=== PATIENT | male | born 1945 | race Two or more races ===

== ENCOUNTER 2021-05-08 09:01 | Inpatient (IN) | payer OTHER ==
[~2021-05-08] VITALS: Ht 167.6 cm; Wt 77.5 kg
[2021-05-08 10:13] LABS: Basophils # (auto) 0 10 ^3/uL (0-0.2); Eosinophils # (auto) 0 10 ^3/uL (0-0.8); Lymphocytes # (auto) 0.3 10 ^3/uL (0.4-5.4); Neutrophils # (auto) 2.6 10 ^3/uL (1.6-8.6); Red Cell Distribution Width 13.1 % (11.8-14.3); White Blood Cell 3.3 10^3/uL (4.4-10.8)
[2021-05-08 10:15] LABS: Basophils % (auto) 0.2 % (0.0-2.0); Hematocrit 51.2 % (41.0-53.0); Lymphocytes % (auto) 10.3 % (10.0-50.0); Mean Corpuscular Hgb Conc. 35.1 g/dL (32.0-36.0); Mean Corpuscular Volume 105.3 fL (80.0-100.0); Monocytes # (auto) 0.4 10 ^3/uL (0-1.3); Neutrophils % (auto) 78.5 % (37.0-80.0); Nucleated Red Blood Cells % 0.4 %; Red Blood Cells 4.86 10^6/uL (4.5-5.90)
[2021-05-08 10:23] LABS: Albumin 2.7 g/dL (3.4-5.0); Anion Gap 9 (5-15); Blood Urea Nitrogen 28 mg/dL (7-18); Calcium 8.7 mg/dL (8.5-10.1); Carbon Dioxide 25 mmol/L (21-32); Chloride 103 mmol/L (98-107); Glucose 167 mg/dL (74-106); Magnesium 2.7 mg/dL (1.6-2.6); Potassium 4.7 mmol/L (3.5-5.1); Sodium 137 mmol/L (136-145)
[2021-05-08 10:25] LABS: BUN/Creatinine Ratio 23.9; GFR African American 78 mL/min; GFR Non-African American 65 mL/min
[2021-05-08 11:25] LABS: Alanine Aminotransferase 77 U/L (16-61); Alkaline Phosphatase 71 U/L (45-117); Aspartate Aminotransferase 114 U/L (15-37); Bilirubin, Total 0.6 mg/dL (0.2-1.0); Total Protein 7.2 g/dL (6.4-8.2)
[2021-05-08] MEDS ORDERED: CHOLECALCIFEROL (VITD3) 2,000 UNIT CAP/TAB PO ONE (12:00)
[2021-05-08] MEDS ORDERED: ASCORBIC ACID 500 MG TAB PO ONE (12:00)
[2021-05-08] MEDS ORDERED: cefTRIAXone 1GM/50ML D5W 50 ML IV ONE (12:00)
[2021-05-08] MEDS ORDERED: AZITHROMYCIN 500MG/ 250ML 250 ML IV ONE (12:00)
[2021-05-08] MEDS ORDERED: ZINC SULFATE 220mg CAP or TAB PO ONE (12:00)
[2021-05-08] MEDS ORDERED: DexAMETHasone SOD PHOS 10MG/1ML VIAL INJ IV ONE (12:00)
[2021-05-08] MEDS ORDERED: MORPHINE SULFATE INJECTION 2 MG/ML SYRG IV PRN (12:45)
[2021-05-08] MEDS ORDERED: NITROGLYCERIN 0.4 MG SL TAB SL PRN (12:45)
[2021-05-08] MEDS ORDERED: REMDESIVIR PER PHARMACY 0 ML IV SCH (12:45)
[2021-05-08] MEDS ORDERED: ACETAMINOPHEN 500 MG TAB PO PRN (12:45)
[2021-05-08 13:44] VITALS: BP 123/69
[2021-05-08 14:03] LABS: Thyroid Stimulating Hormone 1.4 uIU/mL (0.358-3.74)
[2021-05-08 14:10] VITALS: BP 130/76
[2021-05-08 14:16] VITALS: BP 130/76
[2021-05-08] MEDS ORDERED: REMDESIVIR 200 MG in NS 210ml LOADING DOSE ADULT IV ONE (15:00)
[2021-05-08 17:20] VITALS: BP 117/75
[2021-05-08] MEDS: BUDESONIDE (INHALATION) 180 MCG IH IN SCH (21:02)
[2021-05-08] MEDS: ALBUTEROL SULF HFA 90MCG INH 200DOSE IN PRN (21:02)
[2021-05-08] MEDS: ENOXAPARIN SOD 40 MG/0.4 ML SYRINGE SC SCH (21:35)
[2021-05-08 22:00] VITALS: BP 118/72
[2021-05-09 02:41] LABS: Urine Bacteria FEW /hpf (None Seen); Urine Blood Negative /uL (Negative); Urine Hyaline Cast MOD /lpf (0 - 2); Urine Mucus FEW (None Seen); Urine Specific Gravity 1.036 (1.001-1.035); Urine WBC 8 /hpf (0 - 3)
[2021-05-09 05:00] VITALS: BP 112/70
[2021-05-09 06:09] LABS: Potassium 4.3 mmol/L (3.5-5.1)
[2021-05-09 06:15] LABS: Albumin 2.5 g/dL (3.4-5.0); BUN/Creatinine Ratio 27.4; Bilirubin, Total 0.3 mg/dL (0.2-1.0); Calcium 8.3 mg/dL (8.5-10.1); Total Protein 6.5 g/dL (6.4-8.2)
[2021-05-09] MEDS: BUDESONIDE (INHALATION) 180 MCG IH IN SCH ×2 (07:51→21:49)
[2021-05-09] MEDS: ALBUTEROL SULF HFA 90MCG INH 200DOSE IN PRN (07:51)
[2021-05-09 09:00] VITALS: BP 116/74
[2021-05-09] MEDS: DexAMETHasone SOD PHOS 10MG/1ML VIAL INJ IV SCH (09:10)
[2021-05-09] MEDS: CHOLECALCIFEROL (VITD3) 2,000 UNIT CAP/TAB PO SCH (09:11)
[2021-05-09] MEDS: ENOXAPARIN SOD 40 MG/0.4 ML SYRINGE SC SCH ×2 (09:11→21:39)
[2021-05-09] MEDS: THIAMINE HCL 100 MG TAB PO SCH (09:11)
[2021-05-09] MEDS: ZINC SULFATE 220mg CAP or TAB PO SCH (09:11)
[2021-05-09] MEDS: ASCORBIC ACID 1,000 MG TAB PO SCH (09:11)
[2021-05-09] MEDS ORDERED: AZITHROMYCIN 500MG/ 250ML 250 ML IV SCH (10:00)
[2021-05-09 13:00] VITALS: BP 114/68
[2021-05-09] MEDS: REMDESIVIR 100mg 100 MG in SODIUM CHL 0.9% 230 ML IV SCH (15:29)
[2021-05-09] MEDS ORDERED: LACTATED RINGER'S 1,000 ML IV ONE (16:45)
[2021-05-09] MEDS ORDERED: ALBUTEROL SULF HFA 90MCG INH 200DOSE IN PRN (16:45)
[2021-05-09] MEDS ORDERED: FUROSEMIDE 20 MG/2 ML VIAL IV ONE (16:45)
[2021-05-09] MEDS ORDERED: ALBUMIN 25% 100 ML IV ONE (16:45)
[2021-05-09 16:53] VITALS: BP 127/74
[2021-05-09] MEDS ORDERED: DEXTROSE (50%) 50ML SYRG IV PRN (17:00)
[2021-05-09] MEDS ORDERED: ENOXAPARIN SOD 40 MG/0.4 ML SYRINGE SC ONE (17:00)
[2021-05-09] MEDS ORDERED: LORazepam 2MG/ML-1ML VIAL IV PRN (17:00)
[2021-05-09] MEDS: ACCU-CHEK COMFORT CURVE STRIP VI SCH ×2 (17:24→21:39)
[2021-05-09] MEDS: InsuLIN REG 1unit/0.01ml Soln (100units/ml) SC SCH ×2 (17:50→21:41)
[2021-05-09] MEDS: LACTATED RINGER'S 1,000 ML IV SCH (18:44)
[2021-05-09 20:06] LABS: Cholesterol 113 mg/dL (< 200)
[2021-05-09 20:09] LABS: HDL Cholesterol 22 mg/dL (40-59); LDL Cholesterol 80 mg/dL (< 100); Triglycerides 124 mg/dL (< 150)
[2021-05-09] MEDS: DOXYCYCLINE 100MG/250ML 250 ML IV SCH (21:39)
[2021-05-09] MEDS ORDERED: BUDESONIDE (INHALATION) 180 MCG IH IN SCH (22:00)
[2021-05-09 22:11] VITALS: BP 113/65
[2021-05-10] MEDS: ALBUMIN 25% 100 ML IV SCH ×2 (00:04→09:28)
[2021-05-10 05:13] VITALS: BP 137/66
[2021-05-10] MEDS: FUROSEMIDE 20 MG/2 ML VIAL IV SCH ×2 (05:58→18:32)
[2021-05-10] MEDS: ACCU-CHEK COMFORT CURVE STRIP VI SCH ×4 (06:13→22:08)
[2021-05-10] MEDS: InsuLIN REG 1unit/0.01ml Soln (100units/ml) SC SCH ×4 (06:15→22:13)
[2021-05-10 06:56] LABS: Basophils # (auto) 0 10 ^3/uL (0-0.2); Basophils % (auto) 0.1 % (0.0-2.0); Eosinophils # (auto) 0 10 ^3/uL (0-0.8); Hematocrit 44.4 % (41.0-53.0)
[2021-05-10] MEDS: BUDESONIDE (INHALATION) 180 MCG IH IN SCH ×2 (06:57→21:25)
[2021-05-10 06:58] LABS: Hemoglobin 15.4 g/dL (13.5-17.5); Lymphocytes # (auto) 0.5 10 ^3/uL (0.4-5.4); Lymphocytes % (auto) 5.9 % (10.0-50.0); Mean Corpuscular Hemoglobin 36.7 pg (28.0-32.0); Mean Corpuscular Hgb Conc. 34.7 g/dL (32.0-36.0); Mean Corpuscular Volume 105.9 fL (80.0-100.0); Monocytes # (auto) 0.4 10 ^3/uL (0-1.3); Monocytes % (auto) 5.5 % (0.0-12.0); Neutrophils % (auto) 88.5 % (37.0-80.0); Nucleated Red Blood Cells % 0.1 %; Red Cell Distribution Width 12.6 % (11.8-14.3); White Blood Cell 7.9 10^3/uL (4.4-10.8)
[2021-05-10 07:12] LABS: INR 1.16 (0.9-1.15); Partial Thromboplastin Time 33.7 sec (23.6-33.0)
[2021-05-10 07:17] LABS: Albumin 3.4 g/dL (3.4-5.0); Anion Gap 6 (5-15); Blood Urea Nitrogen 29 mg/dL (7-18); Calcium 8.5 mg/dL (8.5-10.1); Carbon Dioxide 25 mmol/L (21-32); Chloride 107 mmol/L (98-107); Glucose 189 mg/dL (74-106); Magnesium 2.7 mg/dL (1.6-2.6); Potassium 3.7 mmol/L (3.5-5.1); Sodium 138 mmol/L (136-145)
[2021-05-10 07:25] LABS: Alanine Aminotransferase 56 U/L (16-61); Alkaline Phosphatase 60 U/L (45-117); Aspartate Aminotransferase 47 U/L (15-37); BUN/Creatinine Ratio 31.9; Bilirubin, Total 0.5 mg/dL (0.2-1.0); GFR African American 105 mL/min; GFR Non-African American 87 mL/min; Phosphorus 2.8 mg/dL (2.5-4.90); Total Protein 6.9 g/dL (6.4-8.2)
[2021-05-10 08:00] VITALS: BP 122/70
[2021-05-10] MEDS: DexAMETHasone SOD PHOS 10MG/1ML VIAL INJ IV SCH (09:28)
[2021-05-10] MEDS: ENOXAPARIN SOD 40 MG/0.4 ML SYRINGE SC SCH ×2 (09:29→22:08)
[2021-05-10] MEDS ORDERED: IVERMECTIN 3 MG TAB PO SCH ×2 (10:00)
[2021-05-10] MEDS ORDERED: IOHEXOL 350 MG/ML 100ML IJ ONE (11:24)
[2021-05-10 12:00] VITALS: BP 133/70
[2021-05-10] MEDS: DOXYCYCLINE 100MG/250ML 250 ML IV SCH ×2 (12:36→22:07)
[2021-05-10] MEDS: LACTATED RINGER'S 1,000 ML IV SCH (12:49)
[2021-05-10] MEDS: REMDESIVIR 100mg 100 MG in SODIUM CHL 0.9% 230 ML IV SCH (14:56)
[2021-05-10 16:00] VITALS: BP 134/70
[2021-05-10] MEDS: THIAMINE HCL 100 MG TAB PO SCH (18:30)
[2021-05-10] MEDS: ZINC SULFATE 220mg CAP or TAB PO SCH (18:30)
[2021-05-10] MEDS: ASCORBIC ACID 1,000 MG TAB PO SCH (18:31)
[2021-05-10] MEDS: CHOLECALCIFEROL (VITD3) 2,000 UNIT CAP/TAB PO SCH (18:31)
[2021-05-10] MEDS: ALBUTEROL SULF HFA 90MCG INH 200DOSE IN PRN (21:25)
[2021-05-10 22:00] VITALS: BP 121/70
[2021-05-10] MEDS ORDERED: INSULIN LANTUS (GLARGINE) 1 /0.01ml (100units/ml) SC SCH (22:00)
[2021-05-11 05:00] VITALS: BP 139/78
[2021-05-11] MEDS: FUROSEMIDE 20 MG/2 ML VIAL IV SCH (06:17)
[2021-05-11] MEDS: ACCU-CHEK COMFORT CURVE STRIP VI SCH ×4 (06:18→22:29)
[2021-05-11] MEDS: InsuLIN REG 1unit/0.01ml Soln (100units/ml) SC SCH ×4 (06:20→22:30)
[2021-05-11 06:27] LABS: Potassium 3.6 mmol/L (3.5-5.1)
[2021-05-11] MEDS: BUDESONIDE (INHALATION) 180 MCG IH IN SCH ×2 (06:43→22:34)
[2021-05-11] MEDS: ALBUTEROL SULF HFA 90MCG INH 200DOSE IN PRN ×2 (06:43→22:34)
[2021-05-11 06:44] LABS: Albumin 3.3 g/dL (3.4-5.0); BUN/Creatinine Ratio 35.4; Bilirubin, Total 0.5 mg/dL (0.2-1.0); CRP High Sensitivity 1.13 mg/dL (< 0.3); Calcium 8.5 mg/dL (8.5-10.1); Magnesium 2.7 mg/dL (1.6-2.6); Total Protein 6.5 g/dL (6.4-8.2)
[2021-05-11 09:00] VITALS: BP 129/72
[2021-05-11] MEDS: DOXYCYCLINE 100MG/250ML 250 ML IV SCH ×2 (10:57→22:28)
[2021-05-11] MEDS: ZINC SULFATE 220mg CAP or TAB PO SCH (10:58)
[2021-05-11] MEDS: CHOLECALCIFEROL (VITD3) 2,000 UNIT CAP/TAB PO SCH (10:58)
[2021-05-11] MEDS: ASCORBIC ACID 1,000 MG TAB PO SCH (10:58)
[2021-05-11] MEDS: THIAMINE HCL 100 MG TAB PO SCH (10:58)
[2021-05-11] MEDS: ENOXAPARIN SOD 40 MG/0.4 ML SYRINGE SC SCH ×2 (10:59→22:28)
[2021-05-11] MEDS: DexAMETHasone SOD PHOS 10MG/1ML VIAL INJ IV SCH (11:00)
[2021-05-11 13:00] VITALS: BP 143/80
[2021-05-11] MEDS: REMDESIVIR 100mg 100 MG in SODIUM CHL 0.9% 230 ML IV SCH (16:00)
[2021-05-11 17:00] VITALS: BP 148/80
[2021-05-11 22:00] VITALS: BP 152/89
[2021-05-11] MEDS: INSULIN LANTUS (GLARGINE) 1 /0.01ml (100units/ml) SC SCH (22:29)
[2021-05-12 01:52] VITALS: BP 152/89
[2021-05-12 05:00] VITALS: BP 142/88
[2021-05-12 06:13] LABS: Basophils # (auto) 0 10 ^3/uL (0-0.2); Basophils % (auto) 0.1 % (0.0-2.0); Eosinophils # (auto) 0 10 ^3/uL (0-0.8); Hemoglobin 16.2 g/dL (13.5-17.5); Lymphocytes # (auto) 0.7 10 ^3/uL (0.4-5.4); Mean Corpuscular Hemoglobin 36.8 pg (28.0-32.0); Monocytes # (auto) 0.6 10 ^3/uL (0-1.3)
[2021-05-12 06:16] LABS: Hematocrit 46.1 % (41.0-53.0); Mean Corpuscular Hgb Conc. 35.1 g/dL (32.0-36.0); Mean Corpuscular Volume 104.9 fL (80.0-100.0); Monocytes % (auto) 6.8 % (0.0-12.0); Neutrophils # (auto) 7.5 10 ^3/uL (1.6-8.6); Neutrophils % (auto) 85.1 % (37.0-80.0); Nucleated Red Blood Cells % 0.1 %; Red Cell Distribution Width 12.6 % (11.8-14.3); White Blood Cell 8.8 10^3/uL (4.4-10.8)
[2021-05-12] MEDS: ACCU-CHEK COMFORT CURVE STRIP VI SCH ×4 (06:28→22:30)
[2021-05-12 06:30] LABS: BUN/Creatinine Ratio 40.8; Calcium 8.9 mg/dL (8.5-10.1); Potassium 3.9 mmol/L (3.5-5.1)
[2021-05-12] MEDS: InsuLIN REG 1unit/0.01ml Soln (100units/ml) SC SCH ×4 (06:30→22:43)
[2021-05-12] MEDS: ALBUTEROL SULF HFA 90MCG INH 200DOSE IN PRN ×2 (08:28→23:49)
[2021-05-12] MEDS: BUDESONIDE (INHALATION) 180 MCG IH IN SCH ×2 (08:28→21:20)
[2021-05-12 09:00] VITALS: BP 141/79
[2021-05-12] MEDS: DexAMETHasone SOD PHOS 10MG/1ML VIAL INJ IV SCH (12:00)
[2021-05-12] MEDS: FUROSEMIDE 20 MG/2 ML VIAL IV SCH (12:01)
[2021-05-12] MEDS: THIAMINE HCL 100 MG TAB PO SCH (12:01)
[2021-05-12] MEDS: DOXYCYCLINE 100MG/250ML 250 ML IV SCH ×2 (12:01→22:30)
[2021-05-12] MEDS: ZINC SULFATE 220mg CAP or TAB PO SCH (12:01)
[2021-05-12] MEDS: ENOXAPARIN SOD 40 MG/0.4 ML SYRINGE SC SCH ×2 (12:02→22:30)
[2021-05-12] MEDS: ASCORBIC ACID 1,000 MG TAB PO SCH (12:02)
[2021-05-12] MEDS: CHOLECALCIFEROL (VITD3) 2,000 UNIT CAP/TAB PO SCH (12:02)
[2021-05-12 13:00] VITALS: BP 137/75
[2021-05-12] MEDS: REMDESIVIR 100mg 100 MG in SODIUM CHL 0.9% 230 ML IV SCH (15:57)
[2021-05-12 17:00] VITALS: BP 144/81
[2021-05-12 22:00] VITALS: BP 138/80
[2021-05-12] MEDS: INSULIN LANTUS (GLARGINE) 1 /0.01ml (100units/ml) SC SCH (22:36)
[2021-05-13 05:00] VITALS: BP 140/74
[2021-05-13] MEDS: ACCU-CHEK COMFORT CURVE STRIP VI SCH ×4 (06:33→21:32)
[2021-05-13] MEDS: InsuLIN REG 1unit/0.01ml Soln (100units/ml) SC SCH ×4 (06:33→21:40)
[2021-05-13] MEDS: ALBUTEROL SULF HFA 90MCG INH 200DOSE IN PRN ×2 (08:05→23:12)
[2021-05-13] MEDS: BUDESONIDE (INHALATION) 180 MCG IH IN SCH ×2 (08:05→21:50)
[2021-05-13 09:00] VITALS: BP 125/69
[2021-05-13] MEDS: THIAMINE HCL 100 MG TAB PO SCH (10:00)
[2021-05-13] MEDS: DOXYCYCLINE 100MG/250ML 250 ML IV SCH ×2 (11:00→21:31)
[2021-05-13] MEDS: ASCORBIC ACID 1,000 MG TAB PO SCH (11:01)
[2021-05-13] MEDS: CHOLECALCIFEROL (VITD3) 2,000 UNIT CAP/TAB PO SCH (11:01)
[2021-05-13] MEDS: ZINC SULFATE 220mg CAP or TAB PO SCH (11:01)
[2021-05-13] MEDS: FUROSEMIDE 20 MG/2 ML VIAL IV SCH (11:01)
[2021-05-13] MEDS: DexAMETHasone SOD PHOS 10MG/1ML VIAL INJ IV SCH (11:01)
[2021-05-13] MEDS: ENOXAPARIN SOD 40 MG/0.4 ML SYRINGE SC SCH ×2 (11:02→21:32)
[2021-05-13 13:00] VITALS: BP 144/80
[2021-05-13 17:00] VITALS: BP 138/74
[2021-05-13] MEDS: INSULIN LANTUS (GLARGINE) 1 /0.01ml (100units/ml) SC SCH (21:40)
[2021-05-13 22:00] VITALS: BP 135/76
[2021-05-14 05:08] VITALS: BP 127/70
[2021-05-14 05:45] LABS: Basophils # (auto) 0 10 ^3/uL (0-0.2); Eosinophils # (auto) 0 10 ^3/uL (0-0.8); Neutrophils # (auto) 9.2 10 ^3/uL (1.6-8.6); White Blood Cell 10.4 10^3/uL (4.4-10.8)
[2021-05-14 05:47] LABS: Basophils % (auto) 0.4 % (0.0-2.0); Eosinophils % (auto) 0.1 % (0.0-7.0); Hematocrit 49.8 % (41.0-53.0); Hemoglobin 17.1 g/dL (13.5-17.5); Lymphocytes # (auto) 0.5 10 ^3/uL (0.4-5.4); Lymphocytes % (auto) 5.1 % (10.0-50.0); Mean Corpuscular Hemoglobin 36.1 pg (28.0-32.0); Mean Corpuscular Hgb Conc. 34.3 g/dL (32.0-36.0); Mean Corpuscular Volume 105.2 fL (80.0-100.0); Monocytes # (auto) 0.6 10 ^3/uL (0-1.3); Neutrophils % (auto) 88.4 % (37.0-80.0); Red Blood Cells 4.74 10^6/uL (4.5-5.90)
[2021-05-14 06:28] LABS: BUN/Creatinine Ratio 36.5; Calcium 9.3 mg/dL (8.5-10.1); Potassium 4.1 mmol/L (3.5-5.1)
[2021-05-14] MEDS: ACCU-CHEK COMFORT CURVE STRIP VI SCH ×4 (06:46→21:46)
[2021-05-14] MEDS: InsuLIN REG 1unit/0.01ml Soln (100units/ml) SC SCH ×4 (06:46→21:43)
[2021-05-14] MEDS: BUDESONIDE (INHALATION) 180 MCG IH IN SCH ×2 (07:21→22:00)
[2021-05-14] MEDS: ALBUTEROL SULF HFA 90MCG INH 200DOSE IN PRN (07:21)
[2021-05-14 09:00] VITALS: BP 131/73
[2021-05-14] MEDS: DexAMETHasone SOD PHOS 10MG/1ML VIAL INJ IV SCH (09:18)
[2021-05-14] MEDS: ZINC SULFATE 220mg CAP or TAB PO SCH (09:19)
[2021-05-14] MEDS: DOXYCYCLINE 100MG/250ML 250 ML IV SCH (09:19)
[2021-05-14] MEDS: FUROSEMIDE 20 MG/2 ML VIAL IV SCH (09:19)
[2021-05-14] MEDS: THIAMINE HCL 100 MG TAB PO SCH (09:20)
[2021-05-14] MEDS: ENOXAPARIN SOD 40 MG/0.4 ML SYRINGE SC SCH ×2 (09:20→21:41)
[2021-05-14] MEDS: CHOLECALCIFEROL (VITD3) 2,000 UNIT CAP/TAB PO SCH (09:20)
[2021-05-14] MEDS: ASCORBIC ACID 1,000 MG TAB PO SCH (10:00)
[2021-05-14 13:00] VITALS: BP 141/81
[2021-05-14 17:00] VITALS: BP 129/83
[2021-05-14] MEDS: INSULIN LANTUS (GLARGINE) 1 /0.01ml (100units/ml) SC SCH (21:45)
[2021-05-14 22:00] VITALS: BP 122/79
[2021-05-14 23:43] VITALS: BP 122/79
[2021-05-15 05:00] VITALS: BP 122/62
[2021-05-15 05:53] LABS: Eosinophils # (auto) 0 10 ^3/uL (0-0.8); Lymphocytes # (auto) 0.5 10 ^3/uL (0.4-5.4); Mean Corpuscular Volume 105.2 fL (80.0-100.0); Monocytes # (auto) 0.6 10 ^3/uL (0-1.3); Nucleated Red Blood Cells % 0.1 %
[2021-05-15 05:55] LABS: Basophils # (auto) 0.1 10 ^3/uL (0-0.2); Basophils % (auto) 0.7 % (0.0-2.0); Hematocrit 51.1 % (41.0-53.0); Hemoglobin 17.5 g/dL (13.5-17.5); Lymphocytes % (auto) 4.5 % (10.0-50.0); Mean Corpuscular Hemoglobin 36.1 pg (28.0-32.0); Mean Corpuscular Hgb Conc. 34.3 g/dL (32.0-36.0); Monocytes % (auto) 5.9 % (0.0-12.0); Neutrophils # (auto) 9.6 10 ^3/uL (1.6-8.6); Neutrophils % (auto) 88.9 % (37.0-80.0); Red Blood Cells 4.85 10^6/uL (4.5-5.90); Red Cell Distribution Width 13.2 % (11.8-14.3); White Blood Cell 10.8 10^3/uL (4.4-10.8)
[2021-05-15 06:15] LABS: BUN/Creatinine Ratio 49.4; Calcium 9.2 mg/dL (8.5-10.1)
[2021-05-15] MEDS: InsuLIN REG 1unit/0.01ml Soln (100units/ml) SC SCH ×4 (06:31→21:28)
[2021-05-15] MEDS: ACCU-CHEK COMFORT CURVE STRIP VI SCH ×4 (06:31→21:22)
[2021-05-15] MEDS: ALBUTEROL SULF HFA 90MCG INH 200DOSE IN PRN (06:54)
[2021-05-15] MEDS: BUDESONIDE (INHALATION) 180 MCG IH IN SCH ×2 (06:54→22:30)
[2021-05-15 09:00] VITALS: BP 127/86
[2021-05-15] MEDS: DexAMETHasone SOD PHOS 10MG/1ML VIAL INJ IV SCH (09:08)
[2021-05-15] MEDS: CHOLECALCIFEROL (VITD3) 2,000 UNIT CAP/TAB PO SCH (09:08)
[2021-05-15] MEDS: ENOXAPARIN SOD 40 MG/0.4 ML SYRINGE SC SCH ×2 (09:08→21:21)
[2021-05-15] MEDS: ZINC SULFATE 220mg CAP or TAB PO SCH (09:09)
[2021-05-15] MEDS: ASCORBIC ACID 1,000 MG TAB PO SCH (09:09)
[2021-05-15] MEDS: THIAMINE HCL 100 MG TAB PO SCH (09:09)
[2021-05-15] MEDS: FUROSEMIDE 20 MG/2 ML VIAL IV SCH (09:09)
[2021-05-15 13:00] VITALS: BP 112/64
[2021-05-15 17:00] VITALS: BP 130/76
[2021-05-15] MEDS: INSULIN LANTUS (GLARGINE) 1 /0.01ml (100units/ml) SC SCH (21:27)
[2021-05-15 22:00] VITALS: BP 156/86
[2021-05-16 05:00] VITALS: BP 107/63
[2021-05-16 06:06] LABS: Calcium 9.3 mg/dL (8.5-10.1); Potassium 4.3 mmol/L (3.5-5.1)
[2021-05-16 06:08] LABS: BUN/Creatinine Ratio 50.5
[2021-05-16 06:19] LABS: Basophils # (auto) 0 10 ^3/uL (0-0.2); Eosinophils # (auto) 0 10 ^3/uL (0-0.8); Mean Corpuscular Hemoglobin 35.4 pg (28.0-32.0); Neutrophils # (auto) 10.1 10 ^3/uL (1.6-8.6)
[2021-05-16 06:21] LABS: Basophils % (auto) 0.1 % (0.0-2.0); Hematocrit 52.1 % (41.0-53.0); Hemoglobin 17.6 g/dL (13.5-17.5); Lymphocytes # (auto) 0.4 10 ^3/uL (0.4-5.4); Mean Corpuscular Hgb Conc. 33.7 g/dL (32.0-36.0); Mean Corpuscular Volume 105.1 fL (80.0-100.0); Monocytes # (auto) 0.6 10 ^3/uL (0-1.3); Monocytes % (auto) 5.4 % (0.0-12.0); Neutrophils % (auto) 90.5 % (37.0-80.0); Red Blood Cells 4.96 10^6/uL (4.5-5.90); Red Cell Distribution Width 13.2 % (11.8-14.3); White Blood Cell 11.2 10^3/uL (4.4-10.8)
[2021-05-16] MEDS: ACCU-CHEK COMFORT CURVE STRIP VI SCH ×4 (06:26→21:31)
[2021-05-16] MEDS: InsuLIN REG 1unit/0.01ml Soln (100units/ml) SC SCH ×4 (06:26→21:47)
[2021-05-16] MEDS: ALBUTEROL SULF HFA 90MCG INH 200DOSE IN PRN ×2 (07:18→22:47)
[2021-05-16] MEDS: BUDESONIDE (INHALATION) 180 MCG IH IN SCH ×2 (07:18→22:47)
[2021-05-16 10:00] VITALS: BP 136/72
[2021-05-16] MEDS: ZINC SULFATE 220mg CAP or TAB PO SCH (10:01)
[2021-05-16] MEDS: FUROSEMIDE 20 MG/2 ML VIAL IV SCH (10:01)
[2021-05-16] MEDS: THIAMINE HCL 100 MG TAB PO SCH (10:01)
[2021-05-16] MEDS: DexAMETHasone SOD PHOS 10MG/1ML VIAL INJ IV SCH (10:01)
[2021-05-16] MEDS: CHOLECALCIFEROL (VITD3) 2,000 UNIT CAP/TAB PO SCH (10:02)
[2021-05-16] MEDS: ASCORBIC ACID 1,000 MG TAB PO SCH (10:02)
[2021-05-16] MEDS: ENOXAPARIN SOD 40 MG/0.4 ML SYRINGE SC SCH ×2 (10:02→21:35)
[2021-05-16 13:00] VITALS: BP 114/69
[2021-05-16 17:00] VITALS: BP 147/81
[2021-05-16] MEDS: INSULIN LANTUS (GLARGINE) 1 /0.01ml (100units/ml) SC SCH (21:47)
[2021-05-16 22:00] VITALS: BP 141/81
[2021-05-17 05:00] VITALS: BP 148/80
[2021-05-17] MEDS: InsuLIN REG 1unit/0.01ml Soln (100units/ml) SC SCH ×4 (06:15→22:41)
[2021-05-17] MEDS: ACCU-CHEK COMFORT CURVE STRIP VI SCH ×4 (06:15→22:12)
[2021-05-17 06:24] LABS: Basophils # (auto) 0 10 ^3/uL (0-0.2); Basophils % (auto) 0.2 % (0.0-2.0); Eosinophils # (auto) 0 10 ^3/uL (0-0.8); Hematocrit 52.8 % (41.0-53.0); Hemoglobin 18.1 g/dL (13.5-17.5); Lymphocytes # (auto) 0.6 10 ^3/uL (0.4-5.4); Lymphocytes % (auto) 4.9 % (10.0-50.0); Mean Corpuscular Hemoglobin 35.9 pg (28.0-32.0); Mean Corpuscular Hgb Conc. 34.4 g/dL (32.0-36.0); Mean Corpuscular Volume 104.4 fL (80.0-100.0); Monocytes # (auto) 0.7 10 ^3/uL (0-1.3); Monocytes % (auto) 5.4 % (0.0-12.0); Neutrophils # (auto) 10.8 10 ^3/uL (1.6-8.6); Neutrophils % (auto) 89.5 % (37.0-80.0); Nucleated Red Blood Cells % 0.1 %; Red Blood Cells 5.06 10^6/uL (4.5-5.90); Red Cell Distribution Width 13.1 % (11.8-14.3)
[2021-05-17 07:00] LABS: Potassium 4.1 mmol/L (3.5-5.1)
[2021-05-17 07:05] LABS: BUN/Creatinine Ratio 57.5; Calcium 9.5 mg/dL (8.5-10.1)
[2021-05-17] MEDS: BUDESONIDE (INHALATION) 180 MCG IH IN SCH ×2 (07:30→22:45)
[2021-05-17] MEDS: ALBUTEROL SULF HFA 90MCG INH 200DOSE IN PRN ×2 (07:30→22:45)
[2021-05-17 08:30] VITALS: BP 120/61
[2021-05-17] MEDS: DexAMETHasone SOD PHOS 10MG/1ML VIAL INJ IV SCH (09:46)
[2021-05-17] MEDS: FUROSEMIDE 20 MG/2 ML VIAL IV SCH (09:46)
[2021-05-17] MEDS: ENOXAPARIN SOD 40 MG/0.4 ML SYRINGE SC SCH ×2 (09:47→22:12)
[2021-05-17] MEDS: ZINC SULFATE 220mg CAP or TAB PO SCH (09:47)
[2021-05-17] MEDS: ASCORBIC ACID 1,000 MG TAB PO SCH (09:47)
[2021-05-17] MEDS: THIAMINE HCL 100 MG TAB PO SCH (09:47)
[2021-05-17] MEDS: CHOLECALCIFEROL (VITD3) 2,000 UNIT CAP/TAB PO SCH (09:47)
[2021-05-17 12:30] VITALS: BP 131/72
[2021-05-17 17:00] VITALS: BP 123/83
[2021-05-17 20:00] VITALS: BP 150/88
[2021-05-17 22:00] VITALS: BP 150/88
[2021-05-17] MEDS: INSULIN LANTUS (GLARGINE) 1 /0.01ml (100units/ml) SC SCH (22:18)
[2021-05-18] VITALS (7 sets, daily range): BP systolic 123–150; BP diastolic 70–97
[2021-05-18 06:10] LABS: Potassium 4.8 mmol/L (3.5-5.1)
[2021-05-18 06:21] LABS: Calcium 9.6 mg/dL (8.5-10.1)
[2021-05-18] MEDS: ACCU-CHEK COMFORT CURVE STRIP VI SCH ×4 (06:25→22:00)
[2021-05-18] MEDS: InsuLIN REG 1unit/0.01ml Soln (100units/ml) SC SCH ×4 (06:26→21:48)
[2021-05-18 07:00] LABS: Basophils # (auto) 0 10 ^3/uL (0-0.2); Basophils % (auto) 0.2 % (0.0-2.0); Eosinophils # (auto) 0 10 ^3/uL (0-0.8); Eosinophils % (auto) 0.3 % (0.0-7.0); Hematocrit 56.1 % (41.0-53.0); Hemoglobin 18.9 g/dL (13.5-17.5); Lymphocytes # (auto) 0.6 10 ^3/uL (0.4-5.4); Lymphocytes % (auto) 4.5 % (10.0-50.0); Mean Corpuscular Hgb Conc. 33.7 g/dL (32.0-36.0); Monocytes # (auto) 0.6 10 ^3/uL (0-1.3); Monocytes % (auto) 4.6 % (0.0-12.0); Neutrophils # (auto) 11.8 10 ^3/uL (1.6-8.6); Neutrophils % (auto) 90.4 % (37.0-80.0); Red Blood Cells 5.24 10^6/uL (4.5-5.90); Red Cell Distribution Width 13.5 % (11.8-14.3); White Blood Cell 13.1 10^3/uL (4.4-10.8)
[2021-05-18] MEDS: BUDESONIDE (INHALATION) 180 MCG IH IN SCH ×2 (07:12→19:56)
[2021-05-18] MEDS: ALBUTEROL SULF HFA 90MCG INH 200DOSE IN PRN ×3 (07:12→19:56)
[2021-05-18] MEDS: FUROSEMIDE 20 MG/2 ML VIAL IV SCH (09:36)
[2021-05-18] MEDS: ZINC SULFATE 220mg CAP or TAB PO SCH (09:36)
[2021-05-18] MEDS: ENOXAPARIN SOD 40 MG/0.4 ML SYRINGE SC SCH ×2 (09:36→21:52)
[2021-05-18] MEDS: DexAMETHasone SOD PHOS 10MG/1ML VIAL INJ IV SCH (09:36)
[2021-05-18] MEDS: ASCORBIC ACID 1,000 MG TAB PO SCH (09:36)
[2021-05-18] MEDS: CHOLECALCIFEROL (VITD3) 2,000 UNIT CAP/TAB PO SCH (09:37)
[2021-05-18] MEDS: THIAMINE HCL 100 MG TAB PO SCH (09:37)
[2021-05-18] MEDS: INSULIN LANTUS (GLARGINE) 1 /0.01ml (100units/ml) SC SCH (22:29)
[2021-05-19 05:00] VITALS: BP 135/78
[2021-05-19 06:25] LABS: INR 1.24 (0.9-1.15)
[2021-05-19] MEDS: ACCU-CHEK COMFORT CURVE STRIP VI SCH ×4 (06:27→21:37)
[2021-05-19] MEDS: InsuLIN REG 1unit/0.01ml Soln (100units/ml) SC SCH ×4 (06:28→21:39)
[2021-05-19] MEDS: BUDESONIDE (INHALATION) 180 MCG IH IN SCH ×2 (07:49→22:05)
[2021-05-19] MEDS: ALBUTEROL SULF HFA 90MCG INH 200DOSE IN PRN ×2 (07:49→22:05)
[2021-05-19 08:00] VITALS: BP 131/81
[2021-05-19 08:45] VITALS: BP 131/81
[2021-05-19] MEDS: DexAMETHasone SOD PHOS 10MG/1ML VIAL INJ IV SCH (09:37)
[2021-05-19] MEDS: ENOXAPARIN SOD 40 MG/0.4 ML SYRINGE SC SCH ×2 (09:38→21:41)
[2021-05-19] MEDS: FUROSEMIDE 20 MG/2 ML VIAL IV SCH (09:38)
[2021-05-19] MEDS: ASCORBIC ACID 1,000 MG TAB PO SCH (09:39)
[2021-05-19] MEDS: ZINC SULFATE 220mg CAP or TAB PO SCH (09:39)
[2021-05-19] MEDS: CHOLECALCIFEROL (VITD3) 2,000 UNIT CAP/TAB PO SCH (09:39)
[2021-05-19] MEDS: THIAMINE HCL 100 MG TAB PO SCH (09:39)
[2021-05-19 12:39] VITALS: BP 132/61
[2021-05-19 17:00] VITALS: BP 124/84
[2021-05-19] MEDS: INSULIN LANTUS (GLARGINE) 1 /0.01ml (100units/ml) SC SCH (21:39)
[2021-05-19 22:00] VITALS: BP 148/88
[2021-05-20 05:00] VITALS: BP 147/83
[2021-05-20 06:03] LABS: Hemoglobin 18.3 g/dL (13.5-17.5); White Blood Cell 14.7 10^3/uL (4.4-10.8)
[2021-05-20 06:06] LABS: Basophils # (auto) 0 10 ^3/uL (0-0.2); Eosinophils # (auto) 0 10 ^3/uL (0-0.8); Eosinophils % (auto) 0.1 % (0.0-7.0); Lymphocytes # (auto) 0.6 10 ^3/uL (0.4-5.4); Lymphocytes % (auto) 4.2 % (10.0-50.0); Mean Corpuscular Hemoglobin 36.1 pg (28.0-32.0); Mean Corpuscular Hgb Conc. 33.8 g/dL (32.0-36.0); Mean Corpuscular Volume 106.9 fL (80.0-100.0); Monocytes # (auto) 0.6 10 ^3/uL (0-1.3); Monocytes % (auto) 4.2 % (0.0-12.0); Neutrophils # (auto) 13.5 10 ^3/uL (1.6-8.6); Neutrophils % (auto) 91.5 % (37.0-80.0); Red Blood Cells 5.05 10^6/uL (4.5-5.90)
[2021-05-20 06:26] LABS: Anion Gap 6 (5-15); BUN/Creatinine Ratio 51.5; Blood Urea Nitrogen 53 mg/dL (7-18); Calcium 9.3 mg/dL (8.5-10.1); Carbon Dioxide 26 mmol/L (21-32); Chloride 105 mmol/L (98-107); GFR African American 91 mL/min; GFR Non-African American 75 mL/min; Glucose 107 mg/dL (74-106); Potassium 4.7 mmol/L (3.5-5.1); Sodium 137 mmol/L (136-145)
[2021-05-20 06:41] LABS: CRP High Sensitivity 4.34 mg/dL (< 0.3)
[2021-05-20] MEDS: ALBUTEROL SULF HFA 90MCG INH 200DOSE IN PRN ×2 (06:45→20:16)
[2021-05-20] MEDS: BUDESONIDE (INHALATION) 180 MCG IH IN SCH ×2 (06:46→20:16)
[2021-05-20] MEDS: ACCU-CHEK COMFORT CURVE STRIP VI SCH ×4 (06:50→21:58)
[2021-05-20] MEDS: InsuLIN REG 1unit/0.01ml Soln (100units/ml) SC SCH ×4 (06:50→21:55)
[2021-05-20 09:00] VITALS: BP 127/78
[2021-05-20] MEDS: ENOXAPARIN SOD 40 MG/0.4 ML SYRINGE SC SCH (09:42)
[2021-05-20] MEDS: ASCORBIC ACID 1,000 MG TAB PO SCH (09:42)
[2021-05-20] MEDS: ZINC SULFATE 220mg CAP or TAB PO SCH (09:42)
[2021-05-20] MEDS: DexAMETHasone SOD PHOS 10MG/1ML VIAL INJ IV SCH (09:42)
[2021-05-20] MEDS: CHOLECALCIFEROL (VITD3) 2,000 UNIT CAP/TAB PO SCH (09:42)
[2021-05-20] MEDS: FUROSEMIDE 20 MG/2 ML VIAL IV SCH (09:43)
[2021-05-20] MEDS: THIAMINE HCL 100 MG TAB PO SCH (09:43)
[2021-05-20 13:00] VITALS: BP 124/69
[2021-05-20] MEDS ORDERED: MEROPENEM 1GM IVPB 100 ML IV ONE (15:15)
[2021-05-20] MEDS ORDERED: IOHEXOL 350 MG/ML 100ML IJ ONE (15:18)
[2021-05-20 17:00] VITALS: BP 138/88
[2021-05-20 20:00] VITALS: BP 141/79
[2021-05-20 21:30] VITALS: BP 141/79
[2021-05-20] MEDS: INSULIN LANTUS (GLARGINE) 1 /0.01ml (100units/ml) SC SCH (21:56)
[2021-05-20] MEDS ORDERED: ENOXAPARIN SOD 80 MG/0.8ML SYRINGE SC SCH (22:00)
[2021-05-20] MEDS: MEROPENEM 1GM IVPB 100 ML IV SCH (23:00)
[2021-05-21 00:56] VITALS: BP 141/79
[2021-05-21 05:00] VITALS: BP 122/80
[2021-05-21 06:43] LABS: INR 1.27 (0.9-1.15)
[2021-05-21] MEDS: ACCU-CHEK COMFORT CURVE STRIP VI SCH ×4 (06:47→22:00)
[2021-05-21] MEDS: MEROPENEM 1GM IVPB 100 ML IV SCH ×3 (06:47→23:42)
[2021-05-21] MEDS: InsuLIN REG 1unit/0.01ml Soln (100units/ml) SC SCH ×4 (06:48→22:00)
[2021-05-21] MEDS: ALBUTEROL SULF HFA 90MCG INH 200DOSE IN PRN (06:51)
[2021-05-21] MEDS: BUDESONIDE (INHALATION) 180 MCG IH IN SCH ×2 (06:51→22:23)
[2021-05-21 06:53] LABS: Potassium 5.5 mmol/L (3.5-5.1)
[2021-05-21 06:54] LABS: Basophils # (auto) 0 10 ^3/uL (0-0.2); Basophils % (auto) 0.2 % (0.0-2.0); Eosinophils # (auto) 0 10 ^3/uL (0-0.8); Eosinophils % (auto) 0.2 % (0.0-7.0); Hematocrit 53.7 % (41.0-53.0); Hemoglobin 18.4 g/dL (13.5-17.5); Lymphocytes # (auto) 0.7 10 ^3/uL (0.4-5.4); Mean Corpuscular Hemoglobin 36.3 pg (28.0-32.0); Mean Corpuscular Hgb Conc. 34.3 g/dL (32.0-36.0); Mean Corpuscular Volume 105.9 fL (80.0-100.0); Monocytes # (auto) 0.5 10 ^3/uL (0-1.3); Monocytes % (auto) 4.1 % (0.0-12.0); Neutrophils # (auto) 12.2 10 ^3/uL (1.6-8.6); Neutrophils % (auto) 90.5 % (37.0-80.0); Nucleated Red Blood Cells % 0.7 %; Red Blood Cells 5.07 10^6/uL (4.5-5.90); Red Cell Distribution Width 12.9 % (11.8-14.3); White Blood Cell 13.5 10^3/uL (4.4-10.8)
[2021-05-21 07:19] LABS: Albumin 2.4 g/dL (3.4-5.0); BUN/Creatinine Ratio 48.2; Bilirubin, Total 1.4 mg/dL (0.2-1.0); CRP High Sensitivity 3.55 mg/dL (< 0.3); Calcium 9.4 mg/dL (8.5-10.1); Total Protein 7.2 g/dL (6.4-8.2)
[2021-05-21 08:00] VITALS: BP 134/88
[2021-05-21] MEDS ORDERED: SODIUM ZIRCONIUM CYCL 10 GM PAK PO ONE (09:00)
[2021-05-21] MEDS: DexAMETHasone SOD PHOS 10MG/1ML VIAL INJ IV SCH (09:57)
[2021-05-21] MEDS: THIAMINE HCL 100 MG TAB PO SCH (09:58)
[2021-05-21] MEDS: ZINC SULFATE 220mg CAP or TAB PO SCH (09:58)
[2021-05-21] MEDS: FUROSEMIDE 20 MG/2 ML VIAL IV SCH (09:58)
[2021-05-21] MEDS: CHOLECALCIFEROL (VITD3) 2,000 UNIT CAP/TAB PO SCH (09:59)
[2021-05-21] MEDS: ASCORBIC ACID 1,000 MG TAB PO SCH (09:59)
[2021-05-21] MEDS: ENOXAPARIN SOD 80 MG/0.8ML SYRINGE SC SCH ×2 (10:02→22:38)
[2021-05-21 12:00] VITALS: BP 119/72
[2021-05-21 16:00] VITALS: BP 115/78
[2021-05-21 21:00] VITALS: BP 112/55
[2021-05-21] MEDS: INSULIN LANTUS (GLARGINE) 1 /0.01ml (100units/ml) SC SCH (22:38)
[2021-05-22] VITALS (33 sets, daily range): BP systolic 121–165; BP diastolic 78–97
[2021-05-22] MEDS: MEROPENEM 1GM IVPB 100 ML IV SCH ×3 (06:36→23:00)
[2021-05-22] MEDS: ACCU-CHEK COMFORT CURVE STRIP VI SCH ×4 (06:58→22:00)
[2021-05-22] MEDS: InsuLIN REG 1unit/0.01ml Soln (100units/ml) SC SCH ×4 (06:58→22:00)
[2021-05-22 07:07] LABS: Eosinophils # (auto) 0 10 ^3/uL (0-0.8); Eosinophils % (auto) 0.1 % (0.0-7.0); Hemoglobin 18.2 g/dL (13.5-17.5); Lymphocytes # (auto) 0.7 10 ^3/uL (0.4-5.4); Mean Corpuscular Hemoglobin 36.2 pg (28.0-32.0); Mean Corpuscular Hgb Conc. 34.5 g/dL (32.0-36.0); Monocytes # (auto) 0.9 10 ^3/uL (0-1.3)
[2021-05-22 07:12] LABS: Basophils # (auto) 0.1 10 ^3/uL (0-0.2); Basophils % (auto) 0.5 % (0.0-2.0); Hematocrit 52.7 % (41.0-53.0); Lymphocytes % (auto) 4.2 % (10.0-50.0); Mean Corpuscular Volume 105.1 fL (80.0-100.0); Monocytes % (auto) 5.1 % (0.0-12.0); Neutrophils # (auto) 15.4 10 ^3/uL (1.6-8.6); Neutrophils % (auto) 90.1 % (37.0-80.0); Nucleated Red Blood Cells % 0.2 %; Red Blood Cells 5.02 10^6/uL (4.5-5.90); White Blood Cell 17.1 10^3/uL (4.4-10.8)
[2021-05-22 07:24] LABS: BUN/Creatinine Ratio 49.5; Calcium 8.9 mg/dL (8.5-10.1); Potassium 4.4 mmol/L (3.5-5.1)
[2021-05-22] MEDS: ALBUTEROL SULF HFA 90MCG INH 200DOSE IN PRN ×2 (07:29→23:42)
[2021-05-22] MEDS: BUDESONIDE (INHALATION) 180 MCG IH IN SCH ×2 (07:30→21:57)
[2021-05-22] MEDS: ZINC SULFATE 220mg CAP or TAB PO SCH (10:00)
[2021-05-22] MEDS: ASCORBIC ACID 1,000 MG TAB PO SCH (10:00)
[2021-05-22] MEDS: CHOLECALCIFEROL (VITD3) 2,000 UNIT CAP/TAB PO SCH (10:00)
[2021-05-22] MEDS: THIAMINE HCL 100 MG TAB PO SCH (10:00)
[2021-05-22] MEDS: FUROSEMIDE 20 MG/2 ML VIAL IV SCH (10:44)
[2021-05-22] MEDS: DexAMETHasone SOD PHOS 10MG/1ML VIAL INJ IV SCH (10:44)
[2021-05-22] MEDS: ENOXAPARIN SOD 80 MG/0.8ML SYRINGE SC SCH ×2 (10:46→22:00)
[2021-05-22] MEDS ORDERED: CLINIMIX PER PHARMACY 0 ML IV SCH (13:00)
[2021-05-22 13:51] LABS: Albumin 2.3 g/dL (3.4-5.0); Bilirubin, Direct 0.5 mg/dL (0-0.2); Magnesium 2.9 mg/dL (1.6-2.6)
[2021-05-22 13:54] LABS: Bilirubin, Total 1.5 mg/dL (0.2-1.0); Phosphorus 3.7 mg/dL (2.5-4.90); Total Protein 6.9 g/dL (6.4-8.2)
[2021-05-22] MEDS ORDERED: AMINO ACID INFUSION IN D10W 1,000 ML IV NR (20:00)
[2021-05-22] MEDS: INSULIN LANTUS (GLARGINE) 1 /0.01ml (100units/ml) SC SCH (22:00)
[2021-05-23] VITALS (60 sets, daily range): BP systolic 84–151; BP diastolic 53–109
[2021-05-23 04:34] LABS: Eosinophils # (auto) 0 10 ^3/uL (0-0.8)
[2021-05-23 04:36] LABS: Basophils # (auto) 0 10 ^3/uL (0-0.2); Basophils % (auto) 0.1 % (0.0-2.0); Hemoglobin 17.5 g/dL (13.5-17.5); Lymphocytes # (auto) 0.4 10 ^3/uL (0.4-5.4); Lymphocytes % (auto) 2.9 % (10.0-50.0); Mean Corpuscular Hemoglobin 35.6 pg (28.0-32.0); Mean Corpuscular Hgb Conc. 33.7 g/dL (32.0-36.0); Mean Corpuscular Volume 105.5 fL (80.0-100.0); Monocytes # (auto) 0.5 10 ^3/uL (0-1.3); Monocytes % (auto) 3.4 % (0.0-12.0); Neutrophils # (auto) 14.3 10 ^3/uL (1.6-8.6); Neutrophils % (auto) 93.6 % (37.0-80.0); Red Blood Cells 4.93 10^6/uL (4.5-5.90); Red Cell Distribution Width 12.8 % (11.8-14.3); White Blood Cell 15.3 10^3/uL (4.4-10.8)
[2021-05-23 04:54] LABS: Albumin 2.2 g/dL (3.4-5.0); Calcium 8.7 mg/dL (8.5-10.1); Magnesium 3.2 mg/dL (1.6-2.6); Potassium 4.5 mmol/L (3.5-5.1)
[2021-05-23 05:02] LABS: BUN/Creatinine Ratio 58.7; Bilirubin, Total 1.3 mg/dL (0.2-1.0); CRP High Sensitivity 12.7 mg/dL (< 0.3); Phosphorus 3.8 mg/dL (2.5-4.90); Pre Albumin 10.8 mg/dL (20.0-40.0); Total Protein 6.8 g/dL (6.4-8.2)
[2021-05-23] MEDS: MEROPENEM 1GM IVPB 100 ML IV SCH ×3 (06:36→23:13)
[2021-05-23] MEDS: ACCU-CHEK COMFORT CURVE STRIP VI SCH ×4 (06:36→18:04)
[2021-05-23] MEDS: InsuLIN REG 1unit/0.01ml Soln (100units/ml) SC SCH ×4 (06:36→18:06)
[2021-05-23] MEDS: BUDESONIDE (INHALATION) 180 MCG IH IN SCH (07:20)
[2021-05-23] MEDS: ALBUTEROL SULF HFA 90MCG INH 200DOSE IN PRN (07:20)
[2021-05-23] MEDS: ZINC SULFATE 220mg CAP or TAB PO SCH (09:06)
[2021-05-23] MEDS: FUROSEMIDE 20 MG/2 ML VIAL IV SCH (09:06)
[2021-05-23] MEDS: DexAMETHasone SOD PHOS 10MG/1ML VIAL INJ IV SCH (09:06)
[2021-05-23] MEDS: CHOLECALCIFEROL (VITD3) 2,000 UNIT CAP/TAB PO SCH (09:06)
[2021-05-23] MEDS: THIAMINE HCL 100 MG TAB PO SCH (09:07)
[2021-05-23] MEDS: ENOXAPARIN SOD 80 MG/0.8ML SYRINGE SC SCH (09:07)
[2021-05-23] MEDS: ASCORBIC ACID 1,000 MG TAB PO SCH (09:07)
[2021-05-23] MEDS ORDERED: DEXTROSE (50%) 50ML SYRG IV SCH (12:00)
[2021-05-23] MEDS ORDERED: PROPOFOL 100 ML IV ONE (12:45)
[2021-05-23] MEDS ORDERED: ETOMIDATE (2MG/ML) 20ML VIAL IV ONE (12:45)
[2021-05-23] MEDS ORDERED: MIDAZOLAM DRIP 50 mg/50mL 50 ML IV ONE (12:45)
[2021-05-23] MEDS ORDERED: ROCURONIUM 10MG/ML 10ML VIAL IV ONE (12:46)
[2021-05-23] MEDS: MIDAZOLAM DRIP 50 mg/50mL 50 ML IV SCH ×2 (13:00→23:16)
[2021-05-23] MEDS: PROPOFOL 100 ML IV SCH ×2 (13:00→23:15)
[2021-05-23] MEDS: NOREPINEPHRINE 8 MG/250ML KIT 250 ML IV SCH (13:30)
[2021-05-23] MEDS: fentaNYL Drip 2500mCg/250mlNS 250 ML IV SCH (18:27)
[2021-05-23] MEDS ORDERED: AMINO ACID INFUSION IN D10W 1,000 ML IV NR (20:00)
[2021-05-23] MEDS: ROCURONIUM BROMIDE 1,000 MG in D5W 5% 150 ML IV SCH (21:10)
[2021-05-23] MEDS: ENOXAPARIN SOD 40 MG/0.4 ML SYRINGE SC SCH (23:12)
[2021-05-23] MEDS: INSULIN LANTUS (GLARGINE) 1 /0.01ml (100units/ml) SC SCH (23:14)
[2021-05-24] VITALS (99 sets, daily range): BP systolic 81–131; BP diastolic 50–75
[2021-05-24] MEDS: InsuLIN REG 1unit/0.01ml Soln (100units/ml) SC SCH ×5 (00:32→23:58)
[2021-05-24] MEDS: ACCU-CHEK COMFORT CURVE STRIP VI SCH ×5 (00:32→23:58)
[2021-05-24] MEDS: MIDAZOLAM DRIP 50 mg/50mL 50 ML IV SCH ×6 (02:38→22:43)
[2021-05-24] MEDS: PROPOFOL 100 ML IV SCH ×5 (02:38→22:44)
[2021-05-24] MEDS: fentaNYL Drip 2500mCg/250mlNS 250 ML IV SCH ×2 (05:52→17:40)
[2021-05-24] MEDS: MEROPENEM 1GM IVPB 100 ML IV SCH ×2 (06:41→22:25)
[2021-05-24] MEDS: NOREPINEPHRINE 8 MG/250ML KIT 250 ML IV SCH ×3 (06:42→22:42)
[2021-05-24 07:00] LABS: Potassium 4.9 mmol/L (3.5-5.1)
[2021-05-24 07:14] LABS: Albumin 1.8 g/dL (3.4-5.0); BUN/Creatinine Ratio 27.1; Bilirubin, Total 0.8 mg/dL (0.2-1.0); Calcium 6.8 mg/dL (8.5-10.1); Magnesium 2.5 mg/dL (1.6-2.6); Phosphorus 5.1 mg/dL (2.5-4.90); Total Protein 6.2 g/dL (6.4-8.2)
[2021-05-24] MEDS: FUROSEMIDE 20 MG/2 ML VIAL IV SCH (09:30)
[2021-05-24] MEDS: ZINC SULFATE 220mg CAP or TAB PO SCH (09:31)
[2021-05-24] MEDS: ENOXAPARIN SOD 40 MG/0.4 ML SYRINGE SC SCH ×2 (09:31→22:25)
[2021-05-24] MEDS: CHOLECALCIFEROL (VITD3) 2,000 UNIT CAP/TAB PO SCH (09:31)
[2021-05-24] MEDS: ASCORBIC ACID 1,000 MG TAB PO SCH (09:31)
[2021-05-24] MEDS: DexAMETHasone SOD PHOS 10MG/1ML VIAL INJ IV SCH (09:31)
[2021-05-24] MEDS: THIAMINE HCL 100 MG TAB PO SCH (09:32)
[2021-05-24] MEDS ORDERED: TPN PER PHARMACY 0 ML IV SCH (13:00)
[2021-05-24] MEDS: ROCURONIUM BROMIDE 1,000 MG in D5W 5% 150 ML IV SCH (18:45)
[2021-05-24] MEDS ORDERED: TPN PER PHARMACY IV NR ×7 (20:00)
[2021-05-24] MEDS ORDERED: AMINO ACID INFUSION IN D10W 1,000 ML IV NR (20:00)
[2021-05-24] MEDS: INSULIN LANTUS (GLARGINE) 1 /0.01ml (100units/ml) SC SCH (22:39)
[2021-05-25] VITALS (102 sets, daily range): BP systolic 35–158; BP diastolic 10–84
[2021-05-25] MEDS: PROPOFOL 100 ML IV SCH ×5 (03:10→19:42)
[2021-05-25] MEDS: MIDAZOLAM DRIP 50 mg/50mL 50 ML IV SCH ×4 (03:10→19:42)
[2021-05-25] MEDS: ACCU-CHEK COMFORT CURVE STRIP VI SCH ×2 (06:00→13:00)
[2021-05-25 06:14] LABS: Basophils # (auto) 0 10 ^3/uL (0-0.2); Eosinophils # (auto) 0 10 ^3/uL (0-0.8); Lymphocytes # (auto) 0.4 10 ^3/uL (0.4-5.4); Mean Corpuscular Hgb Conc. 33.7 g/dL (32.0-36.0); Monocytes # (auto) 0.6 10 ^3/uL (0-1.3); Monocytes % (auto) 3.5 % (0.0-12.0); White Blood Cell 16.8 10^3/uL (4.4-10.8)
[2021-05-25 06:19] LABS: Basophils % (auto) 0.1 % (0.0-2.0); Eosinophils % (auto) 0.1 % (0.0-7.0); Hematocrit 40.4 % (41.0-53.0); Hemoglobin 13.6 g/dL (13.5-17.5); Lymphocytes % (auto) 2.5 % (10.0-50.0); Mean Corpuscular Hemoglobin 35.7 pg (28.0-32.0); Neutrophils # (auto) 15.8 10 ^3/uL (1.6-8.6); Neutrophils % (auto) 93.8 % (37.0-80.0); Nucleated Red Blood Cells % 0.1 %; Red Blood Cells 3.81 10^6/uL (4.5-5.90); Red Cell Distribution Width 12.4 % (11.8-14.3)
[2021-05-25 06:31] LABS: Potassium 4.5 mmol/L (3.5-5.1)
[2021-05-25] MEDS: InsuLIN REG 1unit/0.01ml Soln (100units/ml) SC SCH ×2 (06:31→13:00)
[2021-05-25 06:43] LABS: Albumin 1.7 g/dL (3.4-5.0); BUN/Creatinine Ratio 46.2; Bilirubin, Total 1.4 mg/dL (0.2-1.0); Calcium 7.8 mg/dL (8.5-10.1); Phosphorus 3.7 mg/dL (2.5-4.90); Total Protein 5.2 g/dL (6.4-8.2)
[2021-05-25] MEDS: fentaNYL Drip 2500mCg/250mlNS 250 ML IV SCH ×2 (09:46→17:26)
[2021-05-25] MEDS: DexAMETHasone SOD PHOS 10MG/1ML VIAL INJ IV SCH (09:47)
[2021-05-25] MEDS: FUROSEMIDE 20 MG/2 ML VIAL IV SCH (09:47)
[2021-05-25] MEDS: ENOXAPARIN SOD 40 MG/0.4 ML SYRINGE SC SCH ×2 (09:48→23:23)
[2021-05-25] MEDS: ASCORBIC ACID 1,000 MG TAB PO SCH (09:48)
[2021-05-25] MEDS: ZINC SULFATE 220mg CAP or TAB PO SCH (09:48)
[2021-05-25] MEDS: CHOLECALCIFEROL (VITD3) 2,000 UNIT CAP/TAB PO SCH (09:48)
[2021-05-25] MEDS: THIAMINE HCL 100 MG TAB PO SCH (09:49)
[2021-05-25] MEDS: NOREPINEPHRINE 8 MG/250ML KIT 250 ML IV SCH (09:50)
[2021-05-25] MEDS: MEROPENEM 1GM IVPB 100 ML IV SCH ×2 (09:55→23:32)
[2021-05-25] MEDS ORDERED: TPN PER PHARMACY IV NR ×8 (20:00)
[2021-05-25] MEDS ORDERED: TOCILIZUMAB 400 MG in SODIUM CHL 0.9% 80 ML IV SCH (22:00)
[2021-05-26] VITALS (102 sets, daily range): BP systolic 68–160; BP diastolic 37–80
[2021-05-26] MEDS: INSULIN LANTUS (GLARGINE) 1 /0.01ml (100units/ml) SC SCH ×2 (00:13→22:00)
[2021-05-26] MEDS: PROPOFOL 100 ML IV SCH ×4 (00:25→18:11)
[2021-05-26] MEDS: MIDAZOLAM DRIP 50 mg/50mL 50 ML IV SCH ×5 (00:26→20:04)
[2021-05-26] MEDS: NOREPINEPHRINE 8 MG/250ML KIT 250 ML IV SCH ×2 (00:58→16:37)
[2021-05-26] MEDS: fentaNYL Drip 2500mCg/250mlNS 250 ML IV SCH ×2 (04:07→16:49)
[2021-05-26 05:46] LABS: INR 1.13 (0.9-1.15)
[2021-05-26 05:51] LABS: Hematocrit 40.9 % (41.0-53.0); Hemoglobin 14.1 g/dL (13.5-17.5); Mean Corpuscular Hemoglobin 36.3 pg (28.0-32.0); Mean Corpuscular Hgb Conc. 34.5 g/dL (32.0-36.0); Mean Corpuscular Volume 105.5 fL (80.0-100.0); Red Blood Cells 3.88 10^6/uL (4.5-5.90); Red Cell Distribution Width 12.4 % (11.8-14.3); White Blood Cell 17.3 10^3/uL (4.4-10.8)
[2021-05-26 05:55] LABS: Basophils % (manual) 0 (0.0-2.0); Blast Cells 0; Eosinophils % (manual) 0 (0-7); Myelocytes % 0; Promyelocytes % 0; Reactive Lymphocytes 0
[2021-05-26 09:16] LABS: Band Neutrophils % (manual) 4; Lymphocytes % (manual) 5 (10.0-50.0); Metamyelocytes % 1; Monocytes % (manual) 3 (0-12)
[2021-05-26] MEDS: ZINC SULFATE 220mg CAP or TAB PO SCH (09:31)
[2021-05-26] MEDS: MEROPENEM 1GM IVPB 100 ML IV SCH ×2 (09:31→22:59)
[2021-05-26] MEDS: DexAMETHasone SOD PHOS 10MG/1ML VIAL INJ IV SCH (09:31)
[2021-05-26] MEDS: FUROSEMIDE 20 MG/2 ML VIAL IV SCH (09:31)
[2021-05-26] MEDS: THIAMINE HCL 100 MG TAB PO SCH (09:32)
[2021-05-26] MEDS: ENOXAPARIN SOD 40 MG/0.4 ML SYRINGE SC SCH ×2 (09:32→20:02)
[2021-05-26] MEDS: CHOLECALCIFEROL (VITD3) 2,000 UNIT CAP/TAB PO SCH (09:32)
[2021-05-26] MEDS: ASCORBIC ACID 1,000 MG TAB PO SCH (09:32)
[2021-05-26 10:32] LABS: Albumin 1.6 g/dL (3.4-5.0)
[2021-05-26 10:36] LABS: BUN/Creatinine Ratio 44.7; Total Protein 5.6 g/dL (6.4-8.2)
[2021-05-26] MEDS: SODIUM ZIRCONIUM CYCL 10 GM PAK PO ONE ×2 (14:00→15:15)
[2021-05-26] MEDS: FLUCONAZOLE 200MG/100ML 100 ML IV SCH ×2 (15:16→16:39)
[2021-05-26] MEDS ORDERED: TPN PER PHARMACY IV ONE ×8 (20:00)
[2021-05-27] VITALS (104 sets, daily range): BP systolic 73–173; BP diastolic 43–93
[2021-05-27] MEDS: MIDAZOLAM DRIP 50 mg/50mL 50 ML IV SCH ×2 (00:54→06:01)
[2021-05-27] MEDS: PROPOFOL 100 ML IV SCH ×2 (02:48)
[2021-05-27] MEDS: fentaNYL Drip 2500mCg/250mlNS 250 ML IV SCH (03:26)
[2021-05-27 05:33] LABS: Red Cell Distribution Width 12.8 % (11.8-14.3)
[2021-05-27 05:37] LABS: Hematocrit 38.9 % (41.0-53.0); Hemoglobin 13.2 g/dL (13.5-17.5); Mean Corpuscular Volume 105.8 fL (80.0-100.0); Red Blood Cells 3.67 10^6/uL (4.5-5.90)
[2021-05-27 05:54] LABS: Albumin 1.5 g/dL (3.4-5.0); BUN/Creatinine Ratio 50.7; Calcium 7.5 mg/dL (8.5-10.1); Magnesium 3.1 mg/dL (1.6-2.6); Potassium 5.5 mmol/L (3.5-5.1)
[2021-05-27 05:57] LABS: Bilirubin, Total 2.5 mg/dL (0.2-1.0); Total Protein 5.5 g/dL (6.4-8.2)
[2021-05-27] MEDS: NOREPINEPHRINE 8 MG/250ML KIT 250 ML IV SCH (06:01)
[2021-05-27 06:23] LABS: Basophils % (manual) 0 (0.0-2.0); Blast Cells 0; Eosinophils % (manual) 0 (0-7); Metamyelocytes % 0; Promyelocytes % 0; Reactive Lymphocytes 0
[2021-05-27 06:57] LABS: Band Neutrophils % (manual) 12; Lymphocytes % (manual) 3 (10.0-50.0); Monocytes % (manual) 2 (0-12); Myelocytes % 3
[2021-05-27] MEDS: ENOXAPARIN SOD 40 MG/0.4 ML SYRINGE SC SCH ×2 (10:00→21:26)
[2021-05-27] MEDS: MEROPENEM 1GM IVPB 100 ML IV SCH ×2 (10:00→14:55)
[2021-05-27] MEDS ORDERED: PANTOPRAZOLE 40 MG TAB PO SCH (10:00)
[2021-05-27] MEDS: THIAMINE HCL 100 MG TAB PO SCH (10:00)
[2021-05-27] MEDS: ZINC SULFATE 220mg CAP or TAB PO SCH (10:00)
[2021-05-27] MEDS: DexAMETHasone SOD PHOS 10MG/1ML VIAL INJ IV SCH (10:00)
[2021-05-27] MEDS: CHOLECALCIFEROL (VITD3) 2,000 UNIT CAP/TAB PO SCH (10:00)
[2021-05-27] MEDS: FUROSEMIDE 20 MG/2 ML VIAL IV SCH (10:00)
[2021-05-27] MEDS: ASCORBIC ACID 1,000 MG TAB PO SCH (10:00)
[2021-05-27] MEDS: FLUCONAZOLE 200MG/100ML 100 ML IV SCH ×2 (10:00→11:00)
[2021-05-27] MEDS: OMEPRAZOLE 20MG/10ML ORAL SUSP GT SCH (11:46)
[2021-05-27] MEDS ORDERED: VANCOMYCIN PER PHARMACY 0 MG IV SCH (14:00)
[2021-05-27] MEDS: SODIUM ZIRCONIUM CYCL 10 GM PAK PO SCH ×2 (14:00→21:26)
[2021-05-27] MEDS ORDERED: VANCOMYCIN 1GM/250ML 250 ML IV SCH (16:00)
[2021-05-27] MEDS: SODIUM CHLORIDE 0.9% 1,000 ML IV SCH (21:12)
[2021-05-27] MEDS: INSULIN LANTUS (GLARGINE) 1 /0.01ml (100units/ml) SC SCH (22:00)
[2021-05-28] VITALS (101 sets, daily range): BP systolic 102–175; BP diastolic 59–78
[2021-05-28] MEDS: PROPOFOL 100 ML IV SCH ×4 (01:26→20:00)
[2021-05-28] MEDS: MIDAZOLAM DRIP 50 mg/50mL 50 ML IV SCH ×5 (01:27→20:00)
[2021-05-28 05:11] LABS: Red Cell Distribution Width 12.8 % (11.8-14.3)
[2021-05-28 05:14] LABS: Mean Corpuscular Hemoglobin 35.9 pg (28.0-32.0); Mean Corpuscular Hgb Conc. 34.2 g/dL (32.0-36.0); Mean Corpuscular Volume 104.7 fL (80.0-100.0); Red Blood Cells 3.34 10^6/uL (4.5-5.90); White Blood Cell 14.6 10^3/uL (4.4-10.8)
[2021-05-28 05:17] LABS: Basophils % (manual) 0 (0.0-2.0); Blast Cells 0; Eosinophils % (manual) 0 (0-7); Metamyelocytes % 0; Myelocytes % 0; Promyelocytes % 0; Reactive Lymphocytes 0
[2021-05-28] MEDS: SODIUM CHLORIDE 0.9% 1,000 ML IV SCH (05:20)
[2021-05-28 05:25] LABS: INR 1.1 (0.9-1.15)
[2021-05-28 05:42] LABS: Calcium 7.3 mg/dL (8.5-10.1); Potassium 5.3 mmol/L (3.5-5.1)
[2021-05-28 05:52] LABS: Albumin 1.6 g/dL (3.4-5.0); BUN/Creatinine Ratio 58.6; Bilirubin, Total 2.5 mg/dL (0.2-1.0); CRP High Sensitivity 2.9 mg/dL (< 0.3); Magnesium 3.1 mg/dL (1.6-2.6)
[2021-05-28] MEDS: fentaNYL Drip 2500mCg/250mlNS 250 ML IV SCH ×2 (05:52→19:00)
[2021-05-28 06:04] LABS: Urine Bacteria NONE SEEN /hpf (None Seen); Urine Blood Negative /uL (Negative); Urine Hyaline Cast FEW /lpf (0 - 2); Urine Specific Gravity 1.023 (1.001-1.035); Urine WBC 5 /hpf (0 - 3)
[2021-05-28] MEDS: SODIUM ZIRCONIUM CYCL 10 GM PAK PO SCH ×3 (06:46→22:00)
[2021-05-28] MEDS: NOREPINEPHRINE 8 MG/250ML KIT 250 ML IV SCH ×2 (06:54→20:00)
[2021-05-28] MEDS: CHOLECALCIFEROL (VITD3) 2,000 UNIT CAP/TAB PO SCH (10:00)
[2021-05-28] MEDS: MEROPENEM 1GM IVPB 100 ML IV SCH ×2 (10:00→22:00)
[2021-05-28] MEDS: FLUCONAZOLE 200MG/100ML 100 ML IV SCH ×2 (10:00→11:00)
[2021-05-28] MEDS: INSULIN LANTUS (GLARGINE) 1 /0.01ml (100units/ml) SC SCH ×2 (10:45→22:00)
[2021-05-28] MEDS ORDERED: ENOXAPARIN SOD 40 MG/0.4 ML SYRINGE SC ONE (10:45)
[2021-05-28] MEDS ORDERED: DEXTROSE (50%) 50ML SYRG IV PRN (10:45)
[2021-05-28] MEDS ORDERED: LIDOCAINE 1% (LOCAL ANESTH.) PF 5ml SDV ID ONE (11:30)
[2021-05-28] MEDS: ACCU-CHEK COMFORT CURVE STRIP VI SCH ×2 (12:00→18:00)
[2021-05-28] MEDS: InsuLIN REG 1unit/0.01ml Soln (100units/ml) SC SCH ×2 (12:00→18:00)
[2021-05-28] MEDS ORDERED: Jevity 1.2 Cal/Fiber 1 Liter GT SCH (12:15)
[2021-05-28] MEDS: FUROSEMIDE 20 MG/2 ML VIAL IV SCH (12:19)
[2021-05-28] MEDS: OMEPRAZOLE 20MG/10ML ORAL SUSP GT SCH (14:09)
[2021-05-28 15:49] LABS: Band Neutrophils % (manual) 4; Lymphocytes % (manual) 3 (10.0-50.0); Monocytes % (manual) 2 (0-12)
[2021-05-28] MEDS: SODIUM CHLOR 0.9% PF (SALINE LOCK) 10ML VIAL/SYR IV SCH (22:00)
[2021-05-29] VITALS (106 sets, daily range): BP systolic 77–134; BP diastolic 49–74
[2021-05-29] MEDS: fentaNYL Drip 2500mCg/250mlNS 250 ML IV SCH ×2 (04:00→17:16)
[2021-05-29] MEDS: MIDAZOLAM DRIP 50 mg/50mL 50 ML IV SCH ×3 (05:00→19:45)
[2021-05-29] MEDS: ACCU-CHEK COMFORT CURVE STRIP VI SCH ×4 (06:00→17:45)
[2021-05-29] MEDS: InsuLIN REG 1unit/0.01ml Soln (100units/ml) SC SCH ×4 (06:00→17:46)
[2021-05-29] MEDS: SODIUM ZIRCONIUM CYCL 10 GM PAK PO SCH ×3 (06:00→22:23)
[2021-05-29 06:41] LABS: Mean Corpuscular Hgb Conc. 34.9 g/dL (32.0-36.0); Red Blood Cells 2.99 10^6/uL (4.5-5.90)
[2021-05-29 06:43] LABS: Hematocrit 31.4 % (41.0-53.0); Mean Corpuscular Hemoglobin 36.7 pg (28.0-32.0); Mean Corpuscular Volume 105.2 fL (80.0-100.0); Red Cell Distribution Width 13.1 % (11.8-14.3); White Blood Cell 10.7 10^3/uL (4.4-10.8)
[2021-05-29 06:58] LABS: Basophils % (manual) 0 (0.0-2.0); Blast Cells 0; Eosinophils % (manual) 0 (0-7); Myelocytes % 0; Promyelocytes % 0; Reactive Lymphocytes 0
[2021-05-29 07:01] LABS: BUN/Creatinine Ratio 61.9; Calcium 7.4 mg/dL (8.5-10.1)
[2021-05-29 07:48] LABS: Band Neutrophils % (manual) 10; Lymphocytes % (manual) 10 (10.0-50.0); Metamyelocytes % 2; Monocytes % (manual) 3 (0-12)
[2021-05-29] MEDS ORDERED: ENOXAPARIN SOD 40 MG/0.4 ML SYRINGE SC SCH (10:00)
[2021-05-29] MEDS: FUROSEMIDE 20 MG/2 ML VIAL IV SCH (10:15)
[2021-05-29] MEDS: SODIUM CHLOR 0.9% PF (SALINE LOCK) 10ML VIAL/SYR IV SCH ×2 (10:15→22:23)
[2021-05-29] MEDS: FLUCONAZOLE 200MG/100ML 100 ML IV SCH ×2 (10:44→11:38)
[2021-05-29] MEDS: OMEPRAZOLE 20MG/10ML ORAL SUSP GT SCH (10:44)
[2021-05-29] MEDS: CHOLECALCIFEROL (VITD3) 2,000 UNIT CAP/TAB PO SCH (11:28)
[2021-05-29] MEDS ORDERED: METOCLOPRAMIDE HCL 5MG/ml INJ 2ml VIAL IV ONE (11:30)
[2021-05-29] MEDS ORDERED: DexAMETHasone SOD PHOS 10MG/1ML VIAL INJ IV ONE (11:30)
[2021-05-29] MEDS: METOCLOPRAMIDE HCL 5MG/ml INJ 2ml VIAL IV SCH ×3 (13:07→22:23)
[2021-05-29] MEDS: MEROPENEM 1GM IVPB 100 ML IV SCH ×2 (13:08→18:33)
[2021-05-29] MEDS: NOREPINEPHRINE 8 MG/250ML KIT 250 ML IV SCH (20:00)
[2021-05-29] MEDS: INSULIN LANTUS (GLARGINE) 1 /0.01ml (100units/ml) SC SCH (22:00)
[2021-05-30] VITALS (106 sets, daily range): BP systolic 87–147; BP diastolic 52–84
[2021-05-30] MEDS: MEROPENEM 1GM IVPB 100 ML IV SCH ×3 (03:05→19:19)
[2021-05-30 05:11] LABS: Hemoglobin 10.8 g/dL (13.5-17.5)
[2021-05-30 05:12] LABS: Hematocrit 31.4 % (41.0-53.0); Mean Corpuscular Hemoglobin 36.3 pg (28.0-32.0); Mean Corpuscular Hgb Conc. 34.3 g/dL (32.0-36.0); Mean Corpuscular Volume 105.8 fL (80.0-100.0); Red Blood Cells 2.97 10^6/uL (4.5-5.90); Red Cell Distribution Width 13.2 % (11.8-14.3); White Blood Cell 13.2 10^3/uL (4.4-10.8)
[2021-05-30 05:20] LABS: Calcium 7.3 mg/dL (8.5-10.1); Potassium 4.5 mmol/L (3.5-5.1)
[2021-05-30 05:26] LABS: Basophils % (manual) 0 (0.0-2.0); Blast Cells 0; Eosinophils % (manual) 0 (0-7); Metamyelocytes % 0; Myelocytes % 0; Promyelocytes % 0; Reactive Lymphocytes 0
[2021-05-30] MEDS: SODIUM ZIRCONIUM CYCL 10 GM PAK PO SCH ×3 (06:01→22:00)
[2021-05-30] MEDS: METOCLOPRAMIDE HCL 5MG/ml INJ 2ml VIAL IV SCH ×2 (06:01→14:02)
[2021-05-30] MEDS: ACCU-CHEK COMFORT CURVE STRIP VI SCH ×4 (06:11→18:48)
[2021-05-30] MEDS: InsuLIN REG 1unit/0.01ml Soln (100units/ml) SC SCH ×4 (06:12→18:00)
[2021-05-30 06:56] LABS: Band Neutrophils % (manual) 10; Lymphocytes % (manual) 5 (10.0-50.0); Monocytes % (manual) 4 (0-12)
[2021-05-30] MEDS ORDERED: DexAMETHasone SOD PHOS 10MG/1ML VIAL INJ IV SCH (10:00)
[2021-05-30] MEDS: CHOLECALCIFEROL (VITD3) 2,000 UNIT CAP/TAB PO SCH (10:06)
[2021-05-30] MEDS: SODIUM CHLOR 0.9% PF (SALINE LOCK) 10ML VIAL/SYR IV SCH ×2 (10:06→22:00)
[2021-05-30] MEDS: FUROSEMIDE 20 MG/2 ML VIAL IV SCH (10:06)
[2021-05-30] MEDS: OMEPRAZOLE 20MG/10ML ORAL SUSP GT SCH (10:07)
[2021-05-30] MEDS: FLUCONAZOLE 200MG/100ML 100 ML IV SCH ×2 (10:07→11:58)
[2021-05-30] MEDS ORDERED: ENOXAPARIN SOD 40 MG/0.4 ML SYRINGE SC ONE (10:15)
[2021-05-30] MEDS: fentaNYL Drip 2500mCg/250mlNS 250 ML IV SCH ×2 (10:46→20:00)
[2021-05-30] MEDS: NOREPINEPHRINE 8 MG/250ML KIT 250 ML IV SCH ×2 (13:30→21:18)
[2021-05-30] MEDS: PROPOFOL 100 ML IV SCH ×2 (14:37→21:00)
[2021-05-30] MEDS: MIDAZOLAM DRIP 50 mg/50mL 50 ML IV SCH (19:00)
[2021-05-30] MEDS: INSULIN LANTUS (GLARGINE) 1 /0.01ml (100units/ml) SC SCH (22:00)
[2021-05-31] VITALS (103 sets, daily range): BP systolic 96–130; BP diastolic 53–77
[2021-05-31] MEDS: ACCU-CHEK COMFORT CURVE STRIP VI SCH ×4 (00:16→18:00)
[2021-05-31] MEDS: MEROPENEM 1GM IVPB 100 ML IV SCH ×3 (02:34→18:38)
[2021-05-31] MEDS: PROPOFOL 100 ML IV SCH ×3 (02:35→15:00)
[2021-05-31] MEDS: MIDAZOLAM DRIP 50 mg/50mL 50 ML IV SCH ×2 (02:36→11:30)
[2021-05-31] MEDS: InsuLIN REG 1unit/0.01ml Soln (100units/ml) SC SCH ×4 (06:00→18:00)
[2021-05-31] MEDS: SODIUM ZIRCONIUM CYCL 10 GM PAK PO SCH (06:00)
[2021-05-31] MEDS: METOCLOPRAMIDE HCL 5MG/ml INJ 2ml VIAL IV SCH ×3 (06:00→22:38)
[2021-05-31 06:06] LABS: Hematocrit 28.8 % (41.0-53.0); Hemoglobin 10.5 g/dL (13.5-17.5); Mean Corpuscular Hemoglobin 39.3 pg (28.0-32.0); Mean Corpuscular Volume 107.3 fL (80.0-100.0); Red Blood Cells 2.68 10^6/uL (4.5-5.90); Red Cell Distribution Width 13.8 % (11.8-14.3); White Blood Cell 10.2 10^3/uL (4.4-10.8)
[2021-05-31 06:07] LABS: Potassium 4.4 mmol/L (3.5-5.1)
[2021-05-31 06:12] LABS: BUN/Creatinine Ratio 62.5; Calcium 6.7 mg/dL (8.5-10.1)
[2021-05-31 06:17] LABS: Mean Corpuscular Hgb Conc. 36.6 g/dL (32.0-36.0)
[2021-05-31 06:19] LABS: Basophils % (manual) 0 (0.0-2.0); Blast Cells 0; Metamyelocytes % 0; Promyelocytes % 0; Reactive Lymphocytes 0
[2021-05-31 07:04] LABS: Band Neutrophils % (manual) 24; Eosinophils % (manual) 2 (0-7); Lymphocytes % (manual) 4 (10.0-50.0); Monocytes % (manual) 1 (0-12); Myelocytes % 5
[2021-05-31] MEDS: FLUCONAZOLE 200MG/100ML 100 ML IV SCH ×2 (09:59→11:18)
[2021-05-31] MEDS: ENOXAPARIN SOD 40 MG/0.4 ML SYRINGE SC SCH (10:00)
[2021-05-31] MEDS: CHOLECALCIFEROL (VITD3) 2,000 UNIT CAP/TAB PO SCH (10:00)
[2021-05-31] MEDS: FUROSEMIDE 20 MG/2 ML VIAL IV SCH (10:00)
[2021-05-31] MEDS: SODIUM CHLOR 0.9% PF (SALINE LOCK) 10ML VIAL/SYR IV SCH ×2 (10:00→22:38)
[2021-05-31] MEDS: OMEPRAZOLE 20MG/10ML ORAL SUSP GT SCH (10:00)
[2021-05-31] MEDS: fentaNYL Drip 2500mCg/250mlNS 250 ML IV SCH (10:29)
[2021-05-31] MEDS: INSULIN LANTUS (GLARGINE) 1 /0.01ml (100units/ml) SC SCH (22:00)
[2021-06-01] VITALS (103 sets, daily range): BP systolic 82–183; BP diastolic 51–73
[2021-06-01] MEDS: NOREPINEPHRINE 8 MG/250ML KIT 250 ML IV SCH (02:00)
[2021-06-01] MEDS: MEROPENEM 1GM IVPB 100 ML IV SCH ×3 (03:00→18:48)
[2021-06-01] MEDS: InsuLIN REG 1unit/0.01ml Soln (100units/ml) SC SCH ×4 (06:00→18:12)
[2021-06-01] MEDS: ACCU-CHEK COMFORT CURVE STRIP VI SCH ×4 (06:28→18:11)
[2021-06-01] MEDS: METOCLOPRAMIDE HCL 5MG/ml INJ 2ml VIAL IV SCH ×3 (06:28→22:27)
[2021-06-01] MEDS: ENOXAPARIN SOD 40 MG/0.4 ML SYRINGE SC SCH (10:00)
[2021-06-01] MEDS: FUROSEMIDE 20 MG/2 ML VIAL IV SCH (10:39)
[2021-06-01] MEDS: FLUCONAZOLE 200MG/100ML 100 ML IV SCH ×2 (10:39→10:44)
[2021-06-01] MEDS: SODIUM CHLOR 0.9% PF (SALINE LOCK) 10ML VIAL/SYR IV SCH ×2 (10:39→22:27)
[2021-06-01] MEDS: OMEPRAZOLE 20MG/10ML ORAL SUSP GT SCH (10:39)
[2021-06-01] MEDS: CHOLECALCIFEROL (VITD3) 2,000 UNIT CAP/TAB PO SCH (10:40)
[2021-06-01] MEDS: MIDAZOLAM DRIP 50 mg/50mL 50 ML IV SCH ×2 (13:30→21:56)
[2021-06-01] MEDS: PROPOFOL 100 ML IV SCH ×2 (13:30→21:57)
[2021-06-01] MEDS: fentaNYL Drip 2500mCg/250mlNS 250 ML IV SCH ×2 (18:12→21:56)
[2021-06-01] MEDS: INSULIN LANTUS (GLARGINE) 1 /0.01ml (100units/ml) SC SCH (22:00)
[2021-06-02] VITALS (94 sets, daily range): BP systolic 83–128; BP diastolic 49–107
[2021-06-02] MEDS: PROPOFOL 100 ML IV SCH ×4 (00:10→22:30)
[2021-06-02] MEDS: ACCU-CHEK COMFORT CURVE STRIP VI SCH ×4 (00:28→17:39)
[2021-06-02] MEDS: MEROPENEM 1GM IVPB 100 ML IV SCH ×3 (03:24→19:30)
[2021-06-02 04:50] LABS: Hemoglobin 10.7 g/dL (13.5-17.5); Mean Corpuscular Hgb Conc. 34.6 g/dL (32.0-36.0); Red Cell Distribution Width 13.9 % (11.8-14.3)
[2021-06-02 04:51] LABS: Hematocrit 30.8 % (41.0-53.0); Mean Corpuscular Hemoglobin 37.6 pg (28.0-32.0); Mean Corpuscular Volume 108.5 fL (80.0-100.0); Red Blood Cells 2.84 10^6/uL (4.5-5.90)
[2021-06-02 05:12] LABS: Basophils % (manual) 0 (0.0-2.0); Blast Cells 0; Metamyelocytes % 0; Promyelocytes % 0; Reactive Lymphocytes 0
[2021-06-02 05:13] LABS: Calcium 7.3 mg/dL (8.5-10.1); Magnesium 2.4 mg/dL (1.6-2.6); Potassium 4.6 mmol/L (3.5-5.1)
[2021-06-02 05:19] LABS: INR 1.19 (0.9-1.15)
[2021-06-02 05:23] LABS: Bilirubin, Total 5.5 mg/dL (0.2-1.0); CRP High Sensitivity 17.7 mg/dL (< 0.3); Total Protein 4.5 g/dL (6.4-8.2)
[2021-06-02 05:53] LABS: BUN/Creatinine Ratio 41.6
[2021-06-02] MEDS: InsuLIN REG 1unit/0.01ml Soln (100units/ml) SC SCH ×4 (06:00→17:38)
[2021-06-02] MEDS: METOCLOPRAMIDE HCL 5MG/ml INJ 2ml VIAL IV SCH ×3 (06:00→22:00)
[2021-06-02] MEDS: MIDAZOLAM DRIP 50 mg/50mL 50 ML IV SCH ×3 (06:10→11:55)
[2021-06-02 07:07] LABS: Band Neutrophils % (manual) 11; Eosinophils % (manual) 5 (0-7); Lymphocytes % (manual) 5 (10.0-50.0); Monocytes % (manual) 1 (0-12); Myelocytes % 1
[2021-06-02] MEDS: ENOXAPARIN SOD 40 MG/0.4 ML SYRINGE SC SCH (10:12)
[2021-06-02] MEDS: OMEPRAZOLE 20MG/10ML ORAL SUSP GT SCH (10:12)
[2021-06-02] MEDS: FUROSEMIDE 20 MG/2 ML VIAL IV SCH (10:12)
[2021-06-02] MEDS: CHOLECALCIFEROL (VITD3) 2,000 UNIT CAP/TAB PO SCH (10:12)
[2021-06-02] MEDS: SODIUM CHLOR 0.9% PF (SALINE LOCK) 10ML VIAL/SYR IV SCH ×2 (10:12→22:00)
[2021-06-02] MEDS: NOREPINEPHRINE 8 MG/250ML KIT 250 ML IV SCH (10:50)
[2021-06-02] MEDS: fentaNYL Drip 2500mCg/250mlNS 250 ML IV SCH (11:21)
[2021-06-02] MEDS: INSULIN LANTUS (GLARGINE) 1 /0.01ml (100units/ml) SC SCH (22:00)
[2021-06-03] VITALS (102 sets, daily range): BP systolic 94–130; BP diastolic 47–67
[2021-06-03] MEDS: fentaNYL Drip 2500mCg/250mlNS 250 ML IV SCH ×2 (00:34→20:02)
[2021-06-03] MEDS: MIDAZOLAM DRIP 50 mg/50mL 50 ML IV SCH (01:57)
[2021-06-03] MEDS: PROPOFOL 100 ML IV SCH ×3 (01:59→12:19)
[2021-06-03] MEDS: MEROPENEM 1GM IVPB 100 ML IV SCH ×3 (03:00→19:00)
[2021-06-03 05:31] LABS: Calcium 6.4 mg/dL (8.5-10.1); Potassium 4.2 mmol/L (3.5-5.1)
[2021-06-03 05:32] LABS: INR 1.14 (0.9-1.15)
[2021-06-03 05:38] LABS: Basophils # (auto) 0.1 10 ^3/uL (0-0.2); Hemoglobin 9.9 g/dL (13.5-17.5); Nucleated Red Blood Cells % 0.2 %; Red Cell Distribution Width 14.1 % (11.8-14.3)
[2021-06-03 05:39] LABS: CRP High Sensitivity 17.4 mg/dL (< 0.3)
[2021-06-03 05:40] LABS: Basophils % (auto) 0.9 % (0.0-2.0); Eosinophils # (auto) 0.2 10 ^3/uL (0-0.8); Eosinophils % (auto) 2.9 % (0.0-7.0); Hematocrit 26.5 % (41.0-53.0); Lymphocytes # (auto) 0.4 10 ^3/uL (0.4-5.4); Lymphocytes % (auto) 5.6 % (10.0-50.0); Mean Corpuscular Hemoglobin 40.4 pg (28.0-32.0); Mean Corpuscular Volume 108.6 fL (80.0-100.0); Monocytes # (auto) 0.3 10 ^3/uL (0-1.3); Monocytes % (auto) 4.8 % (0.0-12.0); Neutrophils # (auto) 5.5 10 ^3/uL (1.6-8.6); Neutrophils % (auto) 85.8 % (37.0-80.0); Red Blood Cells 2.44 10^6/uL (4.5-5.90); White Blood Cell 6.4 10^3/uL (4.4-10.8)
[2021-06-03 05:41] LABS: Mean Corpuscular Hgb Conc. 37.2 g/dL (32.0-36.0)
[2021-06-03] MEDS: InsuLIN REG 1unit/0.01ml Soln (100units/ml) SC SCH ×5 (06:00→23:24)
[2021-06-03] MEDS: ACCU-CHEK COMFORT CURVE STRIP VI SCH ×5 (06:00→23:24)
[2021-06-03] MEDS: METOCLOPRAMIDE HCL 5MG/ml INJ 2ml VIAL IV SCH ×3 (06:00→21:21)
[2021-06-03 06:06] LABS: Total Protein 4.3 g/dL (6.4-8.2)
[2021-06-03 06:13] LABS: Albumin 0.8 g/dL (3.4-5.0)
[2021-06-03 07:41] LABS: BUN/Creatinine Ratio 29.8
[2021-06-03] MEDS: OMEPRAZOLE 20MG/10ML ORAL SUSP GT SCH (10:00)
[2021-06-03] MEDS: SODIUM CHLOR 0.9% PF (SALINE LOCK) 10ML VIAL/SYR IV SCH ×2 (10:00→19:55)
[2021-06-03] MEDS: FUROSEMIDE 20 MG/2 ML VIAL IV SCH (10:00)
[2021-06-03] MEDS: CHOLECALCIFEROL (VITD3) 2,000 UNIT CAP/TAB PO SCH (10:00)
[2021-06-03] MEDS: ENOXAPARIN SOD 40 MG/0.4 ML SYRINGE SC SCH (10:00)
[2021-06-03] MEDS: NOREPINEPHRINE 8 MG/250ML KIT 250 ML IV SCH (12:21)
[2021-06-03] MEDS: ALBUMIN 25% 100 ML IV SCH ×2 (14:00→21:21)
[2021-06-03] MEDS: INSULIN LANTUS (GLARGINE) 1 /0.01ml (100units/ml) SC SCH (19:54)
[2021-06-04] VITALS (98 sets, daily range): BP systolic 93–176; BP diastolic 49–84
[2021-06-04] MEDS: MEROPENEM 1GM IVPB 100 ML IV SCH ×3 (04:32→18:38)
[2021-06-04] MEDS: METOCLOPRAMIDE HCL 5MG/ml INJ 2ml VIAL IV SCH ×3 (05:17→20:05)
[2021-06-04] MEDS: ALBUMIN 25% 100 ML IV SCH (05:56)
[2021-06-04 05:58] LABS: Basophils # (auto) 0 10 ^3/uL (0-0.2); Eosinophils # (auto) 0.1 10 ^3/uL (0-0.8); Lymphocytes # (auto) 0.3 10 ^3/uL (0.4-5.4)
[2021-06-04] MEDS: ACCU-CHEK COMFORT CURVE STRIP VI SCH ×4 (06:00→23:39)
[2021-06-04 06:25] LABS: Potassium 4.1 mmol/L (3.5-5.1)
[2021-06-04 06:28] LABS: Basophils % (auto) 0.8 % (0.0-2.0); Eosinophils % (auto) 2.5 % (0.0-7.0); Hematocrit 27.2 % (41.0-53.0); Hemoglobin 9.7 g/dL (13.5-17.5); Mean Corpuscular Hgb Conc. 35.7 g/dL (32.0-36.0); Mean Corpuscular Volume 109.1 fL (80.0-100.0); Monocytes # (auto) 0.2 10 ^3/uL (0-1.3); Monocytes % (auto) 4.4 % (0.0-12.0); Neutrophils # (auto) 4.8 10 ^3/uL (1.6-8.6); Neutrophils % (auto) 87.3 % (37.0-80.0); Nucleated Red Blood Cells % 0.1 %; Red Cell Distribution Width 14.5 % (11.8-14.3); White Blood Cell 5.5 10^3/uL (4.4-10.8)
[2021-06-04 06:34] LABS: Albumin 1.8 g/dL (3.4-5.0); Bilirubin, Total 6.6 mg/dL (0.2-1.0); Calcium 7.6 mg/dL (8.5-10.1)
[2021-06-04 06:35] LABS: INR 1.09 (0.9-1.15)
[2021-06-04] MEDS: InsuLIN REG 1unit/0.01ml Soln (100units/ml) SC SCH ×4 (06:40→23:39)
[2021-06-04] MEDS: PROPOFOL 100 ML IV SCH ×2 (06:42→10:41)
[2021-06-04 06:48] LABS: BUN/Creatinine Ratio 29.6; Total Protein 5.3 g/dL (6.4-8.2)
[2021-06-04] MEDS: FUROSEMIDE 20 MG/2 ML VIAL IV SCH (10:00)
[2021-06-04] MEDS: ENOXAPARIN SOD 40 MG/0.4 ML SYRINGE SC SCH (10:00)
[2021-06-04] MEDS: CHOLECALCIFEROL (VITD3) 2,000 UNIT CAP/TAB PO SCH (10:00)
[2021-06-04] MEDS: OMEPRAZOLE 20MG/10ML ORAL SUSP GT SCH (10:00)
[2021-06-04] MEDS: SODIUM CHLOR 0.9% PF (SALINE LOCK) 10ML VIAL/SYR IV SCH ×2 (10:00→19:58)
[2021-06-04] MEDS ORDERED: PROPOFOL 100 ML IV ONE (10:10)
[2021-06-04] MEDS: NOREPINEPHRINE 8 MG/250ML KIT 250 ML IV SCH (13:30)
[2021-06-04] MEDS: MIDAZOLAM DRIP 50 mg/50mL 50 ML IV SCH (13:30)
[2021-06-04] MEDS ORDERED: LACTULOSE 20Gm/30ML SOLN PO PRN (16:45)
[2021-06-04] MEDS: INSULIN LANTUS (GLARGINE) 1 /0.01ml (100units/ml) SC SCH (19:58)
[2021-06-04] MEDS: DOCUSATE ORAL LIQUID 100 MG/10 ML UD GT SCH (20:05)
[2021-06-05] VITALS (103 sets, daily range): BP systolic 73–170; BP diastolic 40–87
[2021-06-05] MEDS: MEROPENEM 1GM IVPB 100 ML IV SCH ×3 (02:37→19:32)
[2021-06-05 05:15] LABS: Basophils # (auto) 0 10 ^3/uL (0-0.2); Basophils % (auto) 0.6 % (0.0-2.0); Eosinophils # (auto) 0.1 10 ^3/uL (0-0.8); Eosinophils % (auto) 2.3 % (0.0-7.0); Hematocrit 29.1 % (41.0-53.0); Hemoglobin 10.1 g/dL (13.5-17.5); Lymphocytes # (auto) 0.4 10 ^3/uL (0.4-5.4); Lymphocytes % (auto) 9.3 % (10.0-50.0); Mean Corpuscular Hemoglobin 37.8 pg (28.0-32.0); Mean Corpuscular Hgb Conc. 34.6 g/dL (32.0-36.0); Mean Corpuscular Volume 109.2 fL (80.0-100.0); Monocytes # (auto) 0.2 10 ^3/uL (0-1.3); Monocytes % (auto) 5.1 % (0.0-12.0); Neutrophils # (auto) 3.9 10 ^3/uL (1.6-8.6); Neutrophils % (auto) 82.7 % (37.0-80.0); Nucleated Red Blood Cells % 0.2 %; Red Blood Cells 2.66 10^6/uL (4.5-5.90); Red Cell Distribution Width 14.5 % (11.8-14.3); White Blood Cell 4.7 10^3/uL (4.4-10.8)
[2021-06-05] MEDS: METOCLOPRAMIDE HCL 5MG/ml INJ 2ml VIAL IV SCH ×3 (05:37→21:37)
[2021-06-05] MEDS: InsuLIN REG 1unit/0.01ml Soln (100units/ml) SC SCH ×3 (05:38→19:46)
[2021-06-05] MEDS: ACCU-CHEK COMFORT CURVE STRIP VI SCH ×3 (05:38→19:47)
[2021-06-05 05:46] LABS: Albumin 1.9 g/dL (3.4-5.0); Magnesium 2.4 mg/dL (1.6-2.6); Potassium 3.8 mmol/L (3.5-5.1)
[2021-06-05 05:50] LABS: Bilirubin, Total 6.9 mg/dL (0.2-1.0); Total Protein 5.7 g/dL (6.4-8.2)
[2021-06-05] MEDS: PROPOFOL 100 ML IV SCH ×3 (08:07→16:59)
[2021-06-05] MEDS: FUROSEMIDE 20 MG/2 ML VIAL IV SCH (10:38)
[2021-06-05] MEDS: OMEPRAZOLE 20MG/10ML ORAL SUSP GT SCH (10:38)
[2021-06-05] MEDS: CHOLECALCIFEROL (VITD3) 2,000 UNIT CAP/TAB PO SCH (10:38)
[2021-06-05] MEDS: SODIUM CHLOR 0.9% PF (SALINE LOCK) 10ML VIAL/SYR IV SCH ×2 (10:38→19:34)
[2021-06-05] MEDS: ENOXAPARIN SOD 40 MG/0.4 ML SYRINGE SC SCH ×2 (10:39→19:35)
[2021-06-05] MEDS: DOCUSATE ORAL LIQUID 100 MG/10 ML UD GT SCH ×2 (10:39→21:37)
[2021-06-05] MEDS: MIDAZOLAM DRIP 50 mg/50mL 50 ML IV SCH ×2 (13:24→16:57)
[2021-06-05] MEDS: NOREPINEPHRINE 8 MG/250ML KIT 250 ML IV SCH (16:58)
[2021-06-05] MEDS: fentaNYL Drip 2500mCg/250mlNS 250 ML IV SCH (17:06)
[2021-06-05] MEDS: INSULIN LANTUS (GLARGINE) 1 /0.01ml (100units/ml) SC SCH (19:33)
[2021-06-06] VITALS (49 sets, daily range): BP systolic 96–133; BP diastolic 55–76
[2021-06-06] MEDS: MEROPENEM 1GM IVPB 100 ML IV SCH (04:38)
[2021-06-06] MEDS: METOCLOPRAMIDE HCL 5MG/ml INJ 2ml VIAL IV SCH (04:38)
[2021-06-06] MEDS: ACCU-CHEK COMFORT CURVE STRIP VI SCH ×2 (06:00)
[2021-06-06] MEDS: InsuLIN REG 1unit/0.01ml Soln (100units/ml) SC SCH ×2 (06:00)
[2021-06-06] MEDS: PROPOFOL 100 ML IV SCH (06:34)
[2021-06-06] MEDS: fentaNYL Drip 2500mCg/250mlNS 250 ML IV SCH (06:34)
[2021-06-06] MEDS: MIDAZOLAM DRIP 50 mg/50mL 50 ML IV SCH (06:35)
[2021-06-06] MEDS: DOCUSATE ORAL LIQUID 100 MG/10 ML UD GT SCH (09:32)
[2021-06-06] MEDS: FUROSEMIDE 20 MG/2 ML VIAL IV SCH (09:33)
[2021-06-06] MEDS: SODIUM CHLOR 0.9% PF (SALINE LOCK) 10ML VIAL/SYR IV SCH (09:33)
[2021-06-06] MEDS: OMEPRAZOLE 20MG/10ML ORAL SUSP GT SCH (09:33)
[2021-06-06] MEDS: ENOXAPARIN SOD 40 MG/0.4 ML SYRINGE SC SCH (09:35)
[2021-06-06] MEDS: CHOLECALCIFEROL (VITD3) 2,000 UNIT CAP/TAB PO SCH (09:35)
[2021-06-06] MEDS ORDERED: MORPHINE SULFATE INJECTION 2 MG/ML SYRG IV PRN (11:15)
[2021-06-06] MEDS ORDERED: LORazepam 2MG/ML-1ML VIAL IV PRN (11:15)
== END 2021-06-06 12:43 | DRG 207 ==
LOC: ER 09:01 → TELE 12:47 → TELE-EAST 14:25 → EAST 05-21 11:34 → TELE-E-ADS 05-21 23:26 → ICU CENTRL 05-22 09:42 → DOU IN ICU 05-22 21:42
PROVIDERS: ADMIT Nurse Practitioner Acute Care; ATTEND Internal Medicine
PROC: XW033E5 Introduction of Remdesivir Anti-infective into Peripheral Vein, Percutaneous Approach, New Technology Group 5 (ICD-10-PCS; 2021-05-08)
PROC: 5A1955Z Respiratory Ventilation, Greater than 96 Consecutive Hours (ICD-10-PCS; principal; 2021-05-23)
PROC: 0BH17EZ Insertion of Endotracheal Airway into Trachea, Via Natural or Artificial Opening (ICD-10-PCS; 2021-05-23)
PROC: 5A09357 Assistance with Respiratory Ventilation, Less than 24 Consecutive Hours, Continuous Positive Airway Pressure (ICD-10-PCS; 2021-05-23)
PROC: 06HY33Z Insertion of Infusion Device into Lower Vein, Percutaneous Approach (ICD-10-PCS; 2021-05-23)
PROC: 02H633Z Insertion of Infusion Device into Right Atrium, Percutaneous Approach (ICD-10-PCS; 2021-05-28)
DX: U07.1 COVID-19 (principal); J96.01 Acute respiratory failure with hypoxia; J12.82 Pneumonia due to coronavirus disease 2019; N17.0 Acute kidney failure with tubular necrosis; J98.11 Atelectasis; Z99.11 Dependence on respirator [ventilator] status; E44.0 Moderate protein-calorie malnutrition; T79.7XXA Traumatic subcutaneous emphysema, initial encounter; M79.81 Nontraumatic hematoma of soft tissue; Z66 Do not resuscitate; I95.9 Hypotension, unspecified; D75.89 Other specified diseases of blood and blood-forming organs; N18.31 Chronic kidney disease, stage 3a; E11.22 Type 2 diabetes mellitus with diabetic chronic kidney disease; F10.20 Alcohol dependence, uncomplicated; E11.65 Type 2 diabetes mellitus with hyperglycemia; D89.839 Cytokine release syndrome, grade unspecified; D69.6 Thrombocytopenia, unspecified; E66.9 Obesity, unspecified; E87.5 Hyperkalemia; Z68.31 Body mass index [BMI] 31.0-31.9, adult; Y93.89 Activity, other specified; Y92.89 Other specified places as the place of occurrence of the external cause; Y99.8 Other external cause status
CPT/HCPCS: 36415; 36569; 36600; 71045; 71275; 74018; 80048; 80053; 80061; 80076; 81001; 82040; 82306; 82728; 82805; 82962; 83036; 83605; 83615; 83735; 83880; 84100; 84132; 84154; 84443; 84478; 84484; 85007; 85025; 85027; 85379; 85610; 85730; 86141; 87040; 87070; 87077; 87081; 87086; 87205; 87426; 87804; 93005; 93970; 94002; 94003; 94640; 96365; 96366; 96368; 96375; G0378; J0696; J1100; J1450; J1815; J2185; J2250; J2704; J3490; J7060; P9047